=== PATIENT | male | born 1935 | race Caucasian/White ===

== ENCOUNTER 2022-07-26 12:00 | Outpatient (CLI) | payer MEDICARE, BC, SELFPAY ==
--- OUTSIDE RECORDS SUMMARY | 2022-09-02 03:27 | XMS_ITS | Encounter Summary ---
:1935 Author Organization [facility] Address [address] [place] [id number] Care Team Providers Name Role Phone Dalia Tracy MD Primary Care Provider [phone] Reason for Visit Auth/Cert Specialty Diagnoses / Procedures Referred By Contact Refer red To Contact Surgery Diagnoses BLADDER CANCER Sh Periop Services Procedures COMBINED CYSTOSCOPY, TRANSURETHRAL RESECTION (TUR) TUMOR BLADDER [address] [address] Phone: Referral ID Status Reason Start Date Expiration Date Visits Requ ested Visits Authorized [id number] 1 1 Encounter Details Date Type Department Care Team Description 10/12/2018 Hospital Encounter [facility] Bulmaro Dickson M alignant neoplasm Sarai Leos urinary PreOP/Phase II [place] bladder (H) (Primary [address], UROLOGY [place] Dx) [address] [address] [place] [id number] Social History Tobacco Use Types Packs/Day Years Used Date Smoking Tobacco: Former Cigarettes Quit : 09/14/1971 Smokeless Tobacco: Never Alcohol Use Standard Drinks/Week Comments Yes 0 (1 standard drink = 0.6 oz pure alcoho l) rarely Sex Assigned at Date Recorded Not on file documented as of this encounter Last Filed Vital Signs Vital Sign Reading Time Taken Comments Blood Pressure 145/80 10/12/2018 11:01 AM MACHINE LACER Pulse 67 10/12/2018 10:00 AM MACHINE LACER Temperature 36.4 ??C (97.6 ??F) 10/12/2018 10:00 AM MACHINE LACER Respiratory Rate 14 10/12/2018 11:01 AM MACHINE LACER Oxygen Saturation 95% 10/12/2018 11:01 AM MACHINE LACER Inhaled Oxygen Concentration - - Weight 99 kg (218 lb 3.2 oz) 10/12/2018 5:43 AM MACHINE LACER Height 182.9 cm (6') 10/12/2018 5:43 AM MACHINE LACER Body Mass Index 29.59 10/12/2018 5:43 AM MACHINE LACER documented in this encounter Discharge Instructions Discharge InstructionsYahaira Cisneros RN - 10/12/2018 8:44 AM CST Same Day Surgery Discharge Instructions for Sedation and General Anesthesia ?? It's not unusual to feel dizzy, light-headed or faint for up to 24 hours after surgery or while taking pain medication. If you have these symptoms: sit for a few minutes before standing and have someone assist you when you get up to walk or use the bathroom. ?? You should rest and relax for the next 24 hours. We recommend you make arrangements to have an adult stay with you for at least 24 hours after your discharge. Avoid hazardous and strenuous activity. ?? DO NOT DRIVE any vehicle or operate mechanical equipment for 24 hours following the end of your surgery. Even though you may feel normal, your reactions may be affected by the medication you have received. ?? Do not drink alcoholic beverages for 24 hours following surgery. ?? Slowly progress to your regular diet as you feel able. It's not unusual to feel nauseated and/or vomit after receiving anesthesia. If you develop these symptoms, drink clear liquids (apple juice, dara josé miguel, broth, 7-up, etc. ) until you feel better. If your nausea and vomiting persists for 24 hours, please notify your surgeon. ?? All narcotic pain medications, along with inactivity and anesthesia, can cause constipation. Drinking plenty of liquids and increasing fiber intake will help. ?? For any questions of a medical nature, call your surgeon. ?? Do not make important decisions for 24 hours. ?? If you had general anesthesia, you may have a sore throat for a couple of days related to the breathing tube used during surgery. You may use Cepacol lozenges to help with this discomfort. If it worsens or if you develop a fever, contact your surgeon. ?? If you feel your pain is not well managed with the pain medications prescribed by your surgeon, please contact your surgeon's office to let them know so they can address your concerns. Discharge Instructions for Transurethral Resection of a Bladder Tumor Diet: ?? Diet as tolerated. ?? Drink at least 6 glasses of liquid a day-at least 3 glasses should be water. Activity: ?? Avoid heavy lifting or strenuous activity ?? Increase activity as directed by your surgeon ?? Short walks and stair climbing are OK ?? Showering is OK Care after surgery: ?? Do not hold urine in your bladder. Always empty your bladder when you have the urge to urinate . ?? Do not strain to have a bowel movement. If you constipated, take an over the counter stool softener until stools become normal or soft. This may take several weeks. ?? Do not drive a car or have intercourse until cleared by your doctor. It is not unusual to pass small clots or to have red-tinged urine. If this occurs, decrease activity, and increase your fluid intake. Generally, the urine will clear of blood within a day or two. Call your physician if you have the following signs or symptoms: ?? Painful urination or unable to urinate. ?? Loss of bladder control or increased frequency of urination. ?? Have chills or temperature greater than 101??F. ?? Excessive blood in your urine DISCHARGE INSTRUCTIONS FOR CATHETER CARE AT HOME . Basic Catheter Care 1. Always wash hands before and after handling your catheter. 2. Use soap and water to wash the area around your catheter. 3. Do this procedure twice a day. 4. Proper cleansing will help keep the area from becoming irritated or infected. Leg Bag This is a small plastic bag that collects urine draining from your catheter and then strapped aroundyour thigh. It will need to be emptied when the bag is 1/2 to 3/4 full. Large Drainage Bag 1. This bag is larger than the leg bag and holds more urine. It is to be used while at home, especially at night. 2. Before you go to bed, change the leg bag to the large drainage bag. 3. Pinch off the catheter with your fingers and swab the connection between the catheter and leg bagwith alcohol sponge. 4. Disconnect the leg bag and connect the large drainage bag to your catheter. 5. When you get into bed, arrange the drainage tubing so that it doesn???t kink. 6. Be sure to keep the bag below the level of your bladder and allow enough slack for turning. Cleaning Your Drainage Bags 1. Wash hands. 2. Using funnel or syringe, fill the bag half full with a solution of 1/2 vinegar and 1/2 water. 3. Shake bag, allowing mixture to cleanse inside of bag. 4. Empty out all vinegar and water mixture from your bag. 5. Hang bag to dry when not in use. 6. Clean your bags anytime you change them. Helpful Hints 1. Always keep drainage bags below bladder level to insure adequate drainage. 2. Drink 4-6 glasses of water daily along with other fluids you normally drink to keep urine free ofinfection and / or clots. 3. If you notice no urine in your bag for 2 to 4 hours or you develop extreme discomfort in bladder area, your catheter maybe plugged. Notify your doctor. 4. If you notice your urine becomes foul smelling and cloudy, notify your doctor. Also notify your doctor if you develop fever or chills. 5. If you notice urine leaking around the outside of the catheter, check to be sure catheter or tubing is not kinked. 6. Don???t use leg bag while in bed. HOW TO REMOVE YOUR CATHETER INSTRUCTIONS 1. Wash your hands. 2. Insert the syringe into balloon port of the catheter. 3. Withdraw all the fluid from the balloon. You may have to re-insert the syringe into the port additional times until no more fluid can be withdrawn. 4. Pull gently on the catheter. If no resistance, slowly withdraw. 5. Dispose of the catheter and the syringe. 6. Wash your hands. 7. Call your doctor if unable to urinate within 6-8 hours, or when uncomfortable. If you have questions or concerns about your procedure, call Dr. Dcikson at [phone] INE LACER documented in this encounter Medications at Time of Discharge Medication Sig Dispensed Refills Start Date End Date amLODIPine (NORVASC) 5 MG Take 10 mg by 0 tablet mouth every evening (Takes 2 x 5mg tablet = 10mg dose) cholecalciferol 1000 units Take 1,000 Units 0 TABS by mouth daily Multiple Vitamins-Minerals Take 1-2 tablets 0 (PRESERVISION AREDS 2 PO) by mouth daily ciprofloxacin (CIPRO) 500 Take 1 tablet (500 6 tablet 0 10/15/2018 MG tabletIndications: mg) by mouth 2 Malignant neoplasm of dome times daily for 3 of urinary bladder (H) days documented as of this encounter Progress Notes Alyssa Harkins - 10/12/2018 5:33 AM CST Admission medication history interview status for the 10/12/2018 admission is complete. See [facility] admission navigator for prior to admission medications Medication history source reliability:Good Medication history interview source(s):Patient Medication history resources (including written lists, pill bottles, clinic record):None Primary pharmacy.[place] Additional medication history information not noted on [employer] SUPER[employer]OR med list :None Time spent in this activity: 45 minutes Prior to Admission medications Medication Sig Last Dose Taking? Auth Provider amLODIPine (NORVASC) 5 MG tablet Take 10 mg by mouth every evening (Takes 2 x 5mg tablet = 10mg dose) 10/11/2018 at 1900 Yes Reported, Patient cholecalciferol 1000 units TABS Take 1,000 Units by mouth daily 10/11/2018 at AM Yes Reported, Patient Multiple Vitamins-Minerals (PRESERVISION AREDS 2 PO) Take 1-2 tablets by mouth daily 10/11/2018 at AMYes Reported, Patient INE LACER documented in this encounter Nursing Notes Yahaira Cisneros RN - 10/12/2018 10:32 AM CST PNDS met, po per I&O sheet. Pt dressed, up in recliner and transported to Phase [facility]. [facility] with and son. INE LACER Cecilia Glynn RN - 10/12/2018 9:11 AM CST Covering for 15 min break. INE LACER documented in this encounter Miscellaneous Notes Op Note - Bulmaro Dickson MD - 10/12/2018 11:03 AM CST Procedure Date: 10/12/2018 PREOPERATIVE DIAGNOSIS: Recurrent superficial bladder tumors. POSTOPERATIVE DIAGNOSIS: Tumors located close to the right ureteral orifice appeared to be superficial. Final pathology pending. PROCEDURE: 1. Cystoscopy, bilateral retrogrades. 2. Right ureteral stent. 3. Bladder biopsies with fulguration. ANESTHESIA: General. SURGEON: Bulmaro Dickson MD SUMMARY OF FINDINGS: Multiple superficial bladder tumors located surrounding the right ureteral orifice, dome and posterior bladder; they do appear to be superficial; final pathology pending. Placementof a 6-Haitian x 26 cm stent secondary to the tumors being very close to the orifice. BRIEF HISTORY AND PHYSICAL: The patient is a very pleasant 82-year-old male with a history of recurrent superficial bladder tumors. He has undergone previous resections in the distant past. His most recent followup demonstrated evidence of superficial tumors located surrounding the right ureteral orifice, dome and posterior bladder. The patient now scheduled for definitive treatment. The procedure was thoroughly explained to the patient including possible complications and realistic expectations, and he has elected to proceed. DESCRIPTION OF PROCEDURE: Proper permits were obtained and signed. The patient was taken to the operating room after general anesthesia. He was prepped and draped in the usual sterile fashion. Preliminary cystoscopy shows evidence of a normal urethra, mildly obstructing prostate and the bladder was entered. There was evidence of superficial bladder tumors located surrounding the right ureteral orifice, posterior bladder and dome measuring approximately 0.5 cm. The patient underwent bilateral retrogrades with an 8 acorn catheter with adequate filling of the left ureter, and collecting system was normal. Right ureter also was completely normal. There was no evidence of any obvious filling defects not ed. A [employer]son wire was placed into the right ureteral orifice and a 6-Haitian x 26 cm stent then was placed over the wire in good position in the kidney and bladder. The patient underwent multiple cup biopsies surrounding the orifice, removing all visual tumor and fulguration carefully around that orifice. Posterior there was a small tumor which also was cup biopsied, and the surrounding area was fulgurated. The dome also had a tumor, which again was removed with good cup biopsies and surrounding area was completely fulgurated. No evidence of bleeding was noted. A 16-Haitian Nathan catheter placed and irrigated clear. He was given 10 mg Lasix and a B and O suppository and taken to the recovery room in stable condition. The patient will require a second procedure to remove his stent in approximately 1 week, which will be done in the office. BULMARO DICKSON MD MT: NTS Name: FERMÍN HEATON Account: [id number] : 1935 Procedure Date: 10/12/2018 Document: [id number] cc: Primary Care Physician INE LACER Brief Op Note - Bulmaro Dickson MD - 10/12/2018 8:21 AM CST preop- recurrent superficial bladder tumors Postop same-tumor close to rt orifice Procedure - cysto,retrogrades, rt stent bladder bx's and fulgaration. 1cm area anest- gen Surgeon -sedrick ebl 5cc. Findings-multiple superficial bladder tumors. Rt stent [id number]. INE LACER documented in this encounter Plan of Treatment Not on filedocumented as of this encounter Procedures Procedure Name Priority Date/Time Associated Comments Diagnosis SURGICAL PATHOLOGY Routine 10/12/2018 7:55 AM Res ults for this EXAM MACHINE LACER procedure are i n the results section. XR SURGERY WYATT Routine 10/12/2018 7:50 AM Result s for this FLUORO LESS THAN 5 MACHINE LACER procedure are in MIN W STILLS the results section. CYSTOSCOPY, WITH 10/12/2018 7:20 AM BLADDER CANCER BLADDER NEOPLASM MACHINE LACER FULGURATION CYSTOSCOPY, WITH 10/12/2018 7:20 AM BLADDER CANCER RETROGRADE PYELOGRAM MACHINE LACER AND URETERAL STENT INSERTION CYSTOSCOPY, WITH 10/12/2018 7:20 AM BLADDER CANCER BLADDER BIOPSY MACHINE LACER LAB RESULT - HIM SCAN 09/24/2018 12:00 AM MACHINE LACER EKG CARDIAC - HIM 09/24/2018 12:00 SCAN AM MACHINE LACER documented in this encounter Results Surgical pathology exam (10/12/2018 7:55 AM MACHINE LACER) Component Value Ref Test Analysis Performed At [facility] gist Range Method Time Signature Copath Report Patient Name: FERMÍN HEATON MR#: [id number] Specimen #: [id number] Collected: 10/12/2018 Received: 10/12/2018 Reported: 10/13/2018 14:46 Ordering Phy(s): BULMARO DICKSON For improved result formatting, select 'View Enhanced Report Format' under Linked Documents section. SPECIMEN(S): A: Bladder tumor B: Bladder dome biopsy FINAL DIAGNOSIS: A: Urinary bladder, tumor, biopsy: 1. Non-invasive low-grade papillary urothelial carcinoma. 2. Muscularis propria is not present. B: Urinary bladder, dome, biopsy: 1. Non-invasive low-grade papillary urothelial carcinoma. 2. Muscularis propria is not present. Electronically signed out by: Elkin Lim M.D. GROSS: A. The specimen is received in formalin, labeled with the pa alexshiloh's name and date of , and designated bladder tumor. It consists of two pink-stein, focally hemorr hagic soft tissue fragments, measuring 0.2 cm and 0.3 cm in greatest dimension. ??Entirely submitted in one ca ssette. B. The specimen is received in formalin, labeled with the pa alexshiloh's name and date of , and designated bladder dome biopsy. It consists of a single 0.6 cm pink-t an, focally hemorrhagic soft tissue fragment. Submitted in toto in one cassette. (Dictated by: ALEISHA Freire([facility]) 10/12/2018 12:10 PM) MICROSCOPIC: Noted is the reported history (per available electronic [facility] bong record) including urinary bladder involved by noninvasive low grade papillary urothelial carcinoma dating back to at least 2005. A: Sections demonstrate fragments of cauterized urothelial m ucosa. ??There are papillary fibrovascular cores lined by hyperplastic urothelial cells with cytologic atypia , interpreted as low-grade papillary urothelial carcinoma. ??There are no invasive architectural features. ? ?Muscularis propria is not identified. B: Sections demonstrate fragments of cauterized urothelial m ucosa. ??There are papillary fibrovascular cores lined by hyperplastic urothelial cells with cytologic atypia , interpreted as low-grade papillary urothelial carcinoma. ??There are no invasive architectural features. ? ?Muscularis propria is not identified. This case was reviewed within the department by multiple oth er members (DB, LV) who concur with the diagnoses. CPT Codes: A: 66727-YE2 B: 31044-OD2 TESTING LAB LOCATION: [address] ??[id number] COLLECTION SITE: Client: [facility] Location: SHOR (S) Specimen (Source) Anatomical Collection Method Collection Time Re ceived Time Location / / Volume Laterality Tissue specimen URINARY BLADDER 10/12/2018 7:55 AM (specimen) STRUCTURE / MACHINE LACER Unknown Tissue specimen URINARY BLADDER 10/12/2018 8:13 AM (specimen) STRUCTURE / MACHINE LACER Unknown Bulmaro Dickson MD [facility] Organization Address City/State/ZIP Code Phon e Number COPATH XR Surgery WYATT L/T 5 Min Fluoro w Stills (10/12/2018 7:50 AM MACHINE LACER) Anatomical Region Laterality Modality Abdomen/Pelvis Radio Fluoroscopy Specimen (Source) Anatomical Location Collection Method / Collectio n Time Received Time / Laterality Volume Impressions 10/12/2018 10:22 AM MACHINE LACER IMPRESSION: A total of three spot fluoroscopic images obtained during retrograde bilateral myelograms. No hydr onephrosis on the left. Perhaps minimal hydronephrosis on the ri ght with ureteral stent in place on the right at completion. Total fluoroscopic time is 0.2 minutes. ALEJANDRINA KING MD Narrative 10/12/2018 10:22 AM MACHINE LACER SURGERY C-ARM FLUOROSCOPY LESS THAN FIVE MINUTES WITH STILLS 10/12/2018 7:50 AM HISTORY: Bilateral retrogrades. COMPARISON: None. Procedure Note Alejandrina King MD - 10/12/2018 SURGERY C-ARM FLUOROSCOPY LESS THAN FIVE MINUTES WITH STILLS 10/12/2018 7:50 AM HISTORY: Bilateral retrogrades. COMPARISON: None. IMPRESSION: A total of three spot fluoro scopic images obtained during retrograde bilateral myelograms. No hydr onephrosis on the left. Perhaps minimal hydronephrosis on the ri ght with ureteral stent in place on the right at completion. Total fluoroscopic time is 0.2 minutes. ALEJANDRINA KING MD Bulmaro Dickson MD IMG DIAGNOSTIC IMAGING ORDER [facility] LAB RESULT - HIM SCAN (09/24/2018 12:00 AM MACHINE LACER) Specimen (Source) Anatomical Location Collection Method / Collectio n Time Received Time / Laterality Volume 09/24/2018 Narrative This result has an attachment that is no t available. Provider Outside NON-BEAKER LAB TESTING EKG CARDIAC - HIM SCAN (09/24/2018 12:00 AM MACHINE LACER) Specimen (Source) Anatomical Location Collection Method / Collectio n Time Received Time / Laterality Volume 09/24/2018 Narrative This result has an attachment that is no t available. 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 Scheduled Medication Order 10/10/2018 10/11/2018 10/12/2018 ceFAZolin (ANCEF) intermittent infusion 2 g in 100 mL dextrose PRE-MIX (COMPLETED) 0732 (Given - Provid er: Lilibeth Howard APRN CRNA) 2 g, Intravenous, PRE-OP/PRE-PROCEDURE, Starting Fri10/12/18 at 0541, For 1 dose, Give first dose within 1 hour PRIOR to incision. If patient weight is greater than or equal to 120 kg increase dose to 3 g., Indications: Perioperative Pharmacoprophylaxis, Pre-procedu re tolterodine ER (DETROL LA) 24 hr capsule 4 mg (COMPLETED) 09 (Given - Provider: Cecilia Glynn, RN) 4 mg, Oral, ONCE, On Fri10/12/18 at 0845 , For 1 dose, One time prior to discharge., Post-procedure PRN Medication Order 10/10/2018 10/11/2018 10/12/2018 iopamidol (ISOVUE-300) IV solution 61% (CANCELED) 0751 (Given - Provider: Bulmaro Dickson MD) PRN, Starting Fri10/12/18 at 0751, Intra-procedure sterile water irrigation (bag) (CANCELED) 0741 (Given - Provider: Bulmaro Dickson MD)0822 (Given - Provider: Bulmaro Dickson MD) PRN, Intra-procedure, Starting Fri10/12/18 at 0741, Until Fri at 1032 documented in this encounter Care Teams Rn Radiology Relationship Specialty Start Date End Date Dalia Tracy MD PCP - General Family Practice 10/12/[address] [address] documented as of this encounter
--- OUTSIDE RECORDS SUMMARY | 2022-09-02 03:27 | XMS_ITS | Encounter Summary ---
:1935 Author Organization [facility] Address [address] [place] [address]. [place] [address] Care Team Providers Name Role Phone Alexis Sanchez MD Primary Care Provider Encounter Details Date Type Department Care Team Description 09/14/2012 Anesthesia Event [facility] Dayana Menard PeriOP [facility] v[facility] [place] [address] [facility] [address] [phone] [phone] [id number] (Wo rk) Anesthesia Record Procedure Summary Procedure Name Responsible Anesthesia Start Anesthesia Stop Anesthesiologist Time Time CYSTOSCOPY, BILATERAL 09/14/12 0721 09/14/12 0 825 RETROGRADES, TRANSURETHRAL RESECTION BLADDER TUMOR (Urethra) Events Date Time Event Comment 09/14/2012 0718 0721 An Start 0825 An Stop Name Total gentamicin (GARAMYCIN) IVPB 80 mg 80 mg Agents No agents on file. Blood No blood administrations on file. Lines, Drains, and Airways Type Details Placement Removal Peripheral IV 09/14/12; 20 G; Right; 09/14/12 0000 by 09/14/12 1052 by Hand Idania Be RN Scholes, S andra L RN Retired Non-Surgical 09/14/12; 0726; 5; 09/14/12 0726 by 2 0837 by Airway laryngeal mask airway; Ansley Suresh Sandra L, center of mouth; KEEGAN Burr CRNA, RN Equal, clear and bilateral; HSchraan,VENTILATING EQUIPMENT INSTALLER; End of therapy Urethral Catheter 09/14/12; 0811 09/14/12 0811 by Rigo, 10/12/18 0857 by (unknown); /GI/STREET COMMISSIONER LIZ Cazares Jodie, RN Pelvic Procedure; 16 fr documented in this encounter Social History Tobacco Use Types Packs/Day Years Used Date Smoking Tobacco: Former Smokeless Tobacco: Former Qu it: 09/14/1971 Alcohol Use Standard Drinks/Week Comments Yes 0 (1 standard drink = 0.6 oz pure alcoho l) Sex Assigned at Date Recorded Not on file documented as of this encounter OR Notes Anesthesia Postprocedure Evaluation - Dayana Menard - 09/14/2012 10:15 AM CST Anesthesia Post-Evaluation Note Patient: Fermín Heaton Patient location: PACU Procedure(s) Performed: Procedure(s) with comments: COMBINED CYSTOSCOPY, TRANSURETHRAL RESECTION (TUR) TUMOR BLADDER - CYSTOSCOPY, BILATERAL RETROGRADES, TRANSURETHRAL RESECTION BLADDER TUMOR COMBINED CYSTOSCOPY, RETROGRADES Anesthesia type: General Patient Condition Respiratory Function (RR / SpO2 / Airway Patency): Satisfactory Cardiac Function (HR / Rhythm / BP): Satisfactory Mental Status: Satisfactory Temperature: Satisfactory Pain Control: Satisfactory PONV: None Beta-Juancho Therapy: None indicated Hydration Status: Satisfactory Last Vitals: Filed Vitals: 09/14/12 0935 09/14/12 0945 09/14/12 1000 BP: 129/73 109/70 105/58 Temp: Resp: 16 16 16 SpO2: 96% 95% 95% ATION AND TRAINING MANAGER Anesthesia Preprocedure Evaluation - Dayana Menard - 09/14/2012 7:16 AM CST Procedure: Procedure(s): COMBINED CYSTOSCOPY, TRANSURETHRAL RESECTION (TUR) TUMOR BLADDER COMBINED CYSTOSCOPY, RETROGRADES Preop diagnosis: bladder tumor Allergies Allergen Reactions ??? Vicodin (Hydrocodone-Acetaminophen) vomiting Past Medical History Diagnosis Date ??? Snoring Past Surgical History Procedure Date ??? Appendectomy ??? Genitourinary surgery ??? Hernia repair ??? Ent surgery T+A Prior to Admission medications Not on File Current Facility-Administered Medications Ordered in [facility] Medication Dose Route Frequency Last Rate Last Dose ??? gentamicin (GARAMYCIN) IVPB 80 mg 80 mg Intravenous Pre-Op/Pre-procedure x 1 dose No current [facility]-ordered outpatient prescriptions on file. Wt Readings from Last 1 Encounters: 09/14/12 93.441 kg (206 lb) Temp Readings from Last 1 Encounters: 09/14/12 97.7 ??F (36.5 ??C) BP Readings from Last 6 Encounters: 09/14/12 127/73 09/14/12 127/73 Pulse Readings from Last 4 Encounters: No data found for Pulse Resp Readings from Last 1 Encounters: 09/14/12 24 SpO2 Readings from Last 1 Encounters: 09/14/12 97% Recent Labs Lab Test 11/05/05 1008 NA -- POTASSIUM -- CHLORIDE -- CO2 -- ANIONGAP -- GLC 106 BUN 20 CR 1.10 EMANI -- Anesthesia Evaluation . Pt has had prior anesthetic. No history of anesthetic complications ROS/MED HX Pulmonary: (-) COPD, sleep apnea and ABDI Risk Factors Neurologic: (-) CVA Cardiovascular: (-) hypertension, CAD and arrhythmias METS/Exercise Tolerance: Hematologic: Musculoskeletal: GI/Hepatic: (-) GERD and liver disease Renal: Comment: Urinary retention, bladder tumors (-) renal disease Endo: (-) Type I DM and Type II DM Psychiatric: Infectious Disease: Other: Physical Exam Airway Mallampati: III TM distance: >3 FB Neck ROM: full Dental (+) partials Cardiovascular Rhythm and rate: regular and normal Pulmonary breath sounds clear to auscultation Anesthesia Plan ASA Score 2 . Plan for General and LMA with Intravenous induction. Maintenance will be TIVA. Routine analgesia and antiemetics to be used for post-operative care. Anesthetic plan, risks, benefits and alternatives discussed with: patient or commissary representative. History & Physical Review History and physical reviewed; no interval change. . ATION AND TRAINING MANAGER documented in this encounter Miscellaneous Notes Anesthesia Care Transfer Note - Ansley Suresh APRN CRNA - 09/14/2012 8:25 AM CST Anesthesia Care Transfer Note Patient: Fermín Heaton Transferred to: PACU Patient vital signs: stable Airway: LMA To PACU on 10L 02 per LMA. Spontaneous respirations with Vt >400. Sats 100%. Report given to RN. ATION AND TRAINING MANAGER documented in this encounter Plan of Treatment Not on filedocumented as of this encounter Visit Diagnoses Not on filedocumented in this encounter Administered Medications Inactive Administered Medications - up to 3 most recent administrations Medication Order MAR Action Action Date Dose Rate Site gentamicin (GARAMYCIN) IVPB 80 mg Given 09/14/2012 7:35 AM EDUCATION AND TRAINING MANAGER 80 mg Routine, 80 mg, Intravenous, PRE-OP/PRE-PROCEDURE, Starting on 09/14/12 at 0557, For 1 dose, Pre-procedure documented in this encounter Care Teams Licensed Guide Relationship Specialty Start Date End Date Alexis Sanchez MD PCP - General Family Practice 09/04/12 10/29/[address] [phone] documented as of this encounter
--- OUTSIDE RECORDS SUMMARY | 2022-09-02 03:27 | XMS_ITS | Encounter Summary ---
:1935 Author Organization [facility] Address [address] [place] [id number] Care Team Providers Name Role Phone Dalia Tracy MD Primary Care Provider [phone] Encounter Details Date Type Department Care Team Description 10/12/2018 Travel Social History Tobacco Use Types Packs/Day Years Used Date Smoking Tobacco: Former Cigarettes Quit : 09/14/1971 Smokeless Tobacco: Never Alcohol Use Standard Drinks/Week Comments Yes 0 (1 standard drink = 0.6 oz pure alcoho l) rarely Sex Assigned at Date Recorded Not on file documented as of this encounter Plan of Treatment Not on filedocumented as of this encounter Visit Diagnoses Not on filedocumented in this encounter Care Teams Automatic Spinning Lathe Operator Relationship Specialty Start Date End Date Dalia Tracy MD PCP - General Family Practice 10/12/[address] [address] documented as of this encounter
--- OUTSIDE RECORDS SUMMARY | 2022-09-02 03:27 | XMS_ITS | Encounter Summary ---
:1935 Author Organization [place] Address [facility] [place] [address] Care Team Providers Name Role Phone Alexis Sanchez MD Primary Care Provider Reason for Visit Auth/Cert - Closed Specialty Diagnoses / Procedures Referred By Contact Refer red To Contact Surgery Diagnoses bladder tumor Sh Periop Services Procedures COMBINED CYSTOSCOPY, TRANSURETHRAL RESECTION (TUR) TUMOR BLADDER COMBINED CYSTOSCOPY, RETROGRADES [address] [address] Phone: Referral ID Status Reason Start Date Expiration Date Visits Requ ested Visits Authorized [id number] Closed 1 1 Encounter Details Date Type Department Care Team Description 09/14/2012 Surgery [facility] Bulmaro Dickson MD CYSTOSCOPY, BILATERAL [place] [facility], Services [place] TRANSURETHRAL RESECTION [address] BLADDER TUMOR [address] [place] [address] [place] [address] [phone] Surgery Details Date/Time Status Location OR Service Patient Case Class Case Tr auma Class Type Case? 09/14/12 7:20 Posted OR OR [facility] Same Day AM Surgery Panel 1 Procedure LRB Anes Op Region Wound Class Commen ts CYSTOSCOPY, N/A General Urethra II-Clean CYSTOSCOPY, BILATERAL Contaminated BILATERAL RETROGRADES, RETROGRADES, TRANSURETHRAL TRANSURETHR AL RESECTION BLADDER RESECTI ON BLADDER TUMOR TUMOR CYSTOSCOPY, WITH Bilateral General Urethra II-Clean RETROGRADE PYELOGRAM Contaminated Surgeon Surgeon Role Service Panel Bulmaro Dickson MD Primary Urology 1 documented in this encounter Social History Tobacco Use Types Packs/Day Years Used Date Smoking Tobacco: Former Smokeless Tobacco: Former Qu it: 09/14/1971 Alcohol Use Standard Drinks/Week Comments Yes 0 (1 standard drink = 0.6 oz pure alcoho l) Sex Assigned at Date Recorded Not on file documented as of this encounter Last Filed Vital Signs Vital Sign Reading Time Taken Comments Blood Pressure 133/74 09/14/2012 8:30 AM GROUNDS/MAINTENANCE SPECIALIST Pulse - - Temperature 36.5 ??C (97.7 ??F) 09/14/2012 6:05 AM GROUNDS/MAINTENANCE SPECIALIST Respiratory Rate 12 09/14/2012 8:30 AM GROUNDS/MAINTENANCE SPECIALIST Oxygen Saturation 100% 09/14/2012 8:30 AM GROUNDS/MAINTENANCE SPECIALIST Inhaled Oxygen Concentration - - Weight 93.4 kg (206 lb) 09/14/2012 6:05 AM GROUNDS/MAINTENANCE SPECIALIST Height 185.4 cm (6' 1) 09/14/2012 6:05 AM GROUNDS/MAINTENANCE SPECIALIST Body Mass Index 27.18 09/14/2012 6:05 AM GROUNDS/MAINTENANCE SPECIALIST documented in this encounter Discharge Instructions Discharge InstructionsLiana Abreu RN - 09/14/2012 11:30 AM CST Same Day Surgery Discharge Instructions For Sedation and General Anesthesia 1. It is not unusual to feel light-headed or faint, up to 24 hours after surgery or while taking pain medication. If you have these symptoms; sit for a few minutes before standing and have someone assist you when you get up to walk or use bathroom. 2. You should rest and relax for the next 24 hours and must make arrangements to have someone stay with you for at least 24 hours after your discharge. Avoid hazardous and strenuous activities. 3. DO NOT DRIVE any vehicle or operate mechanical equipment for 24 hours following the end of your surgery. Even though you feel normal, your reactions may be affected by the medication you have received. 4. Do not drink alcoholic beverages for 24 hours following your surgery. 5. Drink clear liquids (apple juice, dara josé miguel, broth, 7-up etc.) Progresses to your regular diet as you feel able. 6. Any questions of a medical nature, call your physician. 7. Do not make important decisions for 24 hours. Cystoscopy Discharge Instructions Diet: Return to the diet that you were on before the procedure, unless you are given specific diet instructions. It is important to drink 6-8 glasses of fluids per day at home - at least 3-4 glasses should be water. Activity: Walk short distances and increase as your strength allows. You may climb stairs. Do not do strenuous exercise or heavy lifting until approved by surgeon. Do not drive while taking narcotic pain medications. Bathing: You may take a shower. Call your physician at if these signs/symptoms are present: Pain that is not relieved by a short rest or ordered pain medications. Temperature at or above 101.0??F or chills. Inability or difficulty urinating. Excessive blood in urine. Any questions or concerns. Your follow up appointment is Nurse signature Date/Time Patient signature DISCHARGE INSTRUCTIONS FOR CATHETER CARE AT HOME You will be going home soon, but your catheter will remain in place for the next few days or weeks.Your catheter drains urine continuously from your bladder, so you will not need to use the toilet, bed dexter or urinal. Your catheter is held inside your bladder by a small balloon filled with water. When it is time foryour catheter to be removed, your doctor will release the water from the balloon. This will allow the catheter to slide out easily. Before your discharge from the hospital, your nurse will review the following instructions about caring for your catheter and drainage bag. By following the instructions carefully, you will avoid problems such as infection, odor, etc. Basic Catheter Care 1. Always wash hands [...] your catheter and then strapped aroundyour thigh. 1. The leg bag can be worn under clothing. It allows you to move around more easily. 2. Empty it every 3 to 4 hours or when it is full. 3. Wash your hands before you empty the bag. 4. Release the bottom stopper to drain out all urine. 5. After emptying bag, swab the port with alcohol sponge. 6. Replace the stopper. Night Drainage Bag This bag is larger than the leg bag and holds more urine. It is to be used while at home, especiallyat night. Since it is larger, you do not need to work about getting up at night to empty it. 1. Before you go to bed, change the leg bag to the night drainage bag. 2. Begin by emptying your bag. 3. Pinch off the catheter with your fingers and swab the connection between the catheter and leg bagwith alcohol sponge. 4. Disconnect the leg bag and connect the night drainage bag to your catheter. 5. When you get into bed, arrange the drainage tubing so that it doesn???t kink. 6. Be sure to keep the bag below the level of your bladder and allow enough slack for turning. Cleaning Your Drainage Bags Supplies: 1. Solution of 1 cup white vinegar and 1 cup lukewarm water. 2. Funnel or catheter tip syringe. Procedure: 1. Wash hands. 2. Rinse bag with lukewarm water. 3. Using funnel or syringe, fill the bag half full with vinegar and water mixture. 4. Shake bag, allowing mixture to cleanse inside of bag. 5. Empty out all vinegar and water mixture from your bag. 6. Outside of bag can be rinsed with warm water and mild soap. 7. Hang bag to dry when not in use. 8. Cleanse your bags every day. Helpful Hints 1. Always keep drainage bags below bladder level to insure adequate drainage. 2. Drink 4-6 glasses of water daily along with other fluids you normally drink to keep urine free ofinfection and / or clots. 3. If you notice no urine in your bag for 2 to 4 hours or if extreme discomfort in bladder area, catheter maybe plugged. Notify your doctor. 4. If you notice your urine becomes foul smelling and cloudy, notify your doctor. Also notify your doctor if you develop fever or chills. 5. If you notice urine leaking around the outside of the catheter, check to be sure catheter or tubing is not kinked. 6. Don???t use leg bag while in bed. NDS/MAINTENANCE SPECIALIST documented in this encounter Medications at Time of Discharge Medication Sig Dispensed Refills Start Date End Date ciprofloxacin (CIPRO) 500 Take 1 tablet by 6 tablet 0 08/2910/09/2018 MG tabletIndications: mouth 2 times Bladder cancer (H) daily. documented as of this encounter Progress Notes Bulmaro Dickson MD - 09/18/2012 12:49 PM CST NDS/MAINTENANCE SPECIALIST documented in this encounter H&P Notes Bulmaro Dickson MD - 09/17/2012 4:58 PM CST NDS/MAINTENANCE SPECIALIST documented in this encounter Nursing Notes Idania Be RN - 09/14/2012 10:53 AM CST BACK FOR CATHETER TEACHING. NDS/MAINTENANCE SPECIALIST documented in this encounter OR Notes OR Anesthesia - Bulmaro Dickson MD - 09/18/2012 12:16 PM CST NDS/MAINTENANCE SPECIALIST documented in this encounter Miscellaneous Notes Op Note - Bulmaro Dickson MD - 09/14/2012 8:28 AM CST PREOPERATIVE DIAGNOSIS: Recurrent superficial bladder cancer. POSTOPERATIVE DIAGNOSIS: Recurrent superficial bladder cancer. PROCEDURES: 1. Cystoscopy, bilateral retrogrades. 2. Resection and fulguration of bladder tumors. ANESTHESIA: General. SUMMARY OF FINDINGS: Multiple low papillary tumors located to the right trigone surrounding the right orifice, superficial tumor dome. Normal bilateral retrogrades. BRIEF HISTORY AND PHYSICAL: Fermín Gutierrez is a very pleasant 76-year-old male with a history of recurrent superficial bladder cancer. He has had previous resection in the past. He was recently seen and was found to have superficial recurrences surrounding the right orifice and dome. He is now scheduled for definitive treatment. The procedure was thoroughly explained to the patient including possible complications and realistic expectations. DESCRIPTION OF PROCEDURE: Proper permits were obtained and signed and taken to the operating suite. After adequate general anesthesia, he was prepped in a sterile fashion. A 22 [place]er was visually passed. Urethra was normal. Prostate was mildly obstructing. Bladder demonstrated evidence of superficialpapillary tumor surrounding the right orifice which was initially difficult to visualize. Also notedwas a low papillary tumor in the dome of the bladder. The rest of the bladder was completely negative. There were some previous scars noted also. The patient underwent bilateral retrogrades with an 8 acorn catheter with adequate filling of the ureters and collecting systems. There was no evidence for obstruction or any filling defects. The 26 [place]er continuous flow resectoscope then was visually passed into the bladder. He underwent resection of the tumor surrounding the right dome and fulguration of all the abnormal surrounding mucosa and surrounding the right orifice. The tumor on the dome also was biopsied and fulgurated. No evidence of bleeding was noted. A Nathan catheter irrigated clear. A B&O suppository was placed in thebladder for postop analgesia including Xylocaine jelly. Estimated blood loss less than 5 mL. COMPLICATIONS: The patient to the recovery room in stable condition. BULMARO DICKSON MD MT: [id number] Name: FERMÍN GUTIERREZ MRN: [id number] Account: [id number] : 1935 Procedure Date: 09/14/2012 Document: [id number] NDS/MAINTENANCE SPECIALIST documented in this encounter Plan of Treatment Not on filedocumented as of this encounter Procedures Procedure Name Priority Date/Time Associated Comments Diagnosis SURGICAL PATHOLOGY Routine 09/14/2012 8:01 AM Res ults for this EXAM GROUNDS/MAINTENANCE SPECIALIST procedure are i n the results section. XR PYELOGRAM RETRO Routine 09/14/2012 7:55 AM Res ults for this SURGERY G/E 1 FILMS GROUNDS/MAINTENANCE SPECIALIST procedur e are in the results section. CYSTOSCOPY, WITH 09/14/2012 7:21 AM bladder tumor RETROGRADE PYELOGRAM GROUNDS/MAINTENANCE SPECIALIST CYSTOSCOPY, WITH 09/14/2012 7:21 AM bladder tumor TRANSURETHRAL GROUNDS/MAINTENANCE SPECIALIST RESECTION BLADDER TUMOR documented in this encounter Results Surgical pathology exam (09/14/2012 8:01 AM GROUNDS/MAINTENANCE SPECIALIST) Component Value Ref Test Analysis Performed At [facility] Range Method Time Signature Copath Patient Name: FERMÍN GUTIERREZ Report MR#: [id number] Specimen #: [id number] Collected: 09/14/2012 Received: 09/14/2012 Reported: 09/15/2012 13:38 Ordering Phy(s): BULMARO DICKSON SPECIMEN(S): Bladder tumor FINAL DIAGNOSIS: Bladder, not otherwise specified, biopsy - 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 Electronically signed out by: Genaro Castaneda M.D. CLINICAL HISTORY: Bladder tumor. GROSS: The specimen is labeled bladder tumor. ??The specimen cons ists of two pink-stein tissue fragments ranging from 0.3 cm up to 0.4 cm. ??The specimens are entirely submitted. ??SI TRS/tw MICROSCOPIC: Sections of bladder show hyperplasia of the transitional duong l epithelium accompanied by chronic inflammatory change. The majority of epithelial cells have a reactive appearance. ??Focally, however, the pr oliferation has a vague papillary configuration, and the possibility of a low grade transitional carcinoma cannot be excluded. There is no evide nce of invasive malignancy. Intradepartmental consultation has been obtained. BCT/el 09/15/2012 TESTING LAB LOCATION: [address] ??[id number] COLLECTION SITE: Client: [facility] Location: [facility] (S) Specimen Anatomical Collection Method Collection Time Receive d Time (Source) Location / / Volume Laterality 09/14/2012 8:01 AM 2 9:10 GROUNDS/MAINTENANCE SPECIALIST AM GROUNDS/MAINTENANCE SPECIALIST Bulmaro Dickson MD [facility] Performing Organization Address City/State/ZIP Code Phon e Number COPATH X-ray Surgery retro pylogram G/E 1 films (09/14/2012 7:55 AM GROUNDS/MAINTENANCE SPECIALIST) Anatomical Region Laterality Modality Abdomen/Pelvis Computed Radiography Specimen (Source) Anatomical Collection Method Collection Time Re ceived Time Location / / Volume Laterality 09/14/2012 7:55 AM GROUNDS/MAINTENANCE SPECIALIST Narrative 09/14/2012 4:36 PM GROUNDS/MAINTENANCE SPECIALIST SURGERY ??RETROGRADE PYELOGRAM GREATER T TORREZ ONE FILM ??09/14/2012 7:55 AM HISTORY: ??Bilateral retrogrades TURBT. COMPARISON: 11/05/05 FINDINGS: Bilateral retrograde pyelogram s demonstrate no evidence of obstruction, no filling defects and no s trictures. Fluoroscopy time: 6 seconds. DERRICK GOLDBERG MD Procedure Note Derrick Goldberg MD - 09/14/2012Format ting of this note might be different from the original. SURGERY RETROGRADE PYELOGRAM GREATER YOANA N ONE FILM 09/14/2012 7:55 AM HISTORY: Bilateral retrogrades TURBT. COMPARISON: 11/05/05 FINDINGS: Bilateral retrograde pyelogram s demonstrate no evidence of obstruction, no filling defects and no s trictures. Fluoroscopy time: 6 seconds. DERRICK GOLDBERG MD Bulmaro Dickson MD IMG DIAGNOSTIC IMAGING ORDER KAZ documented in this encounter Visit Diagnoses Not on filedocumented in this encounter Administered Medications Inactive Administered Medications - up to 3 most recent administrations Medication Order MAR Action Action Date Dose Rate Site fentaNYL (SUBLIMAZE) injection Given 09/14/2012 9:07 AM GROUNDS/MAINTENANCE SPECIALIST 25 m cg 25-50 mcg 25-50 mcg, Intravenous, EVERY 2 MIN PRN, other, acute pain while in PACU., Starting on Fri09/14/12 at 0835, MAX cumulative dose = 250 mcg. Use Fentanyl initially, as a short acting agent for acute pain control. If insufficient, or a longer acting agent is needed, begin Morphine or Hydromorphone if ordered., PACU Given 09/14/2012 8:46 AM GROUNDS/MAINTENANCE SPECIALIST 25 mcg iopamidol (ISOVUE-300) IV solution 61% Given 09/14/2012 7:50 AM GROUNDS/MAINTENANCE SPECIALIST 7 mLs PRN, Starting on Fri09/14/12 at 0750, Supplied and administered by Radiology., Intra-procedure lactated ringers infusion New Bag 09/14/2012 10:25 AM GROUNDS/MAINTENANCE SPECIALIST 1,000 mLs 100 mL/hr at 100 mL/hr, Intravenous, CONTINUOUS, Continue until IV catheter is weaned, PACU/Phase II, Starting on Fri09/14/12 at 0845, Until Fri09/14/12 at 1052 lidocaine 2 % (Uro-Jet) jelly Given 09/14/2012 8:08 AM GROUNDS/MAINTENANCE SPECIALIST 10 mLs PRN, Starting on Fri09/14/12 at 0808, Intra-procedure opium-belladonna (B&O SUPPRETTES) 30-16.2 MG Given 2 8:10 AM GROUNDS/MAINTENANCE SPECIALIST 30 mg suppository PRN, Starting on Fri09/14/12 at 0810, moderate pain (4-6), Intra-procedure sterile water (bottle) irrigation Given 09/14/2012 8:00 AM GROUNDS/MAINTENANCE SPECIALIST 1,000 mLs PRN, Intra-procedure, Starting on Fri09/14/12 at 0800, Until Fri09/14/12 at 1052 sterile water irrigation (bag) Given 09/14/2012 8:00 AM GROUNDS/MAINTENANCE SPECIALIST 6,000 mLs PRN, Intra-procedure, Starting on Fri09/14/12 at 0800, Until Fri09/14/12 at 1052 documented in this encounter Active and Recently Administered Medications Times are shown in GROUNDS/MAINTENANCE SPECIALIST. Scheduled Medication Order 09/12/2012 09/13/2012 09/14/2012 gentamicin (GARAMYCIN) IVPB 80 mg (COMPLETED) 0735 (Given - Provider: Ansley Suresh, INDUSTRIAL TWISTING MACHINE OPERATOR CHARGE HAND) 80 mg, Intravenous, for 30 Minutes, PRE- OP/PRE-PROCEDURE, For 1 dose, Pre-procedure Continuous Medication Order 09/12/2012 09/13/2012 09/14/2012 lactated ringers infusion (CANCELED) 1025 (New Bag - Provider: Aliyah Choudhary, LIZ) at 100 mL/hr, Intravenous, CONTINUOUS, C ontinue until IV catheter is weaned, PACU/Phase II PRN Medication Order 09/12/2012 09/13/2012 09/14/2012 fentaNYL (SUBLIMAZE) injection 25-50 mcg (CANCELED) 0846 (Given - Provider: Idania Be, LIZ)0907 (Given - Provider: Idania Be RN) 25-50 mcg, Intravenous, EVERY 2 MIN PRN, Starting Fri09/14/12 at 0835, other, acute pain while in PACU., MAX cumulative dose = 250 mcg. Use Fentanyl initially, as a short acting agent for acute pain co ntrol. If insufficient, or a longer acti ng agent is needed, begin Morphine or Hydromorphone if ordered., PACU iopamidol (ISOVUE-300) IV solution 61% (CANCELED) 0750 (Given - Provider: Bulmaro Dickson MD) PRN, Starting Fri09/14/12 at 0750, Supp lied and administered by Radiology., Intra-procedure lidocaine 2 % (Uro-Jet) jelly (CANCELED) 0808 (Given - Provider: Bulmaro Dickson MD) PRN, Starting Fri09/14/12 at 0808, Intra-procedure opium-belladonna (B&O SUPPRETTES) 30-16.2 MG suppository (CANCEL ED) 0810 (Given - Provider: Bulmaro Dickson MD) PRN, Starting Fri09/14/12 at 0810, moderate pain, Intra-procedu re sterile water (bottle) irrigation (CANCELED) 0800 (Given - Provider: Bulmaro Dickson MD - Comment: PRN) PRN, Intra-procedure sterile water irrigation (bag) (CANCELED) 0800 (Given - Provider: Bulmaro Dickson MD - Comment: PRN) PRN, Intra-procedure documented in this encounter Care Teams Twill Cutter Relationship Specialty Start Date End Date Alexis Sanchez MD PCP - General Family Practice 09/04/12 10/29/[address] [address] documented as of this encounter
--- OUTSIDE RECORDS SUMMARY | 2022-09-02 03:27 | XMS_ITS | Encounter Summary ---
:1935 Author Organization [facility] Address [address] [place], [place] [address]. [place] [address] Care Team Providers Name Role Phone Dalia Tracy MD Primary Care Provider [phone] Reason for Visit Auth/Cert Specialty Diagnoses / Procedures Referred By Contact Refer red To Contact Surgery Diagnoses BLADDER CANCER Sh Periop Services Procedures COMBINED CYSTOSCOPY, TRANSURETHRAL RESECTION (TUR) TUMOR BLADDER [address] [address] Phone: Referral ID Status Reason Start Date Expiration Date Visits Requ ested Visits Authorized [id number] 1 1 Encounter Details Date Type Department Care Team Description 10/12/2018 Anesthesia Event M [facility] Erickson Penaloza MD [facility] [address] [address] [place] [address] [phone] (Wo rk) Anesthesia Record Procedure Summary Procedure Name Responsible Anesthesia Start Anesthesia Stop Time Anesthesiologist Time COMBINED Christina Penaloza MD 10/12/18 0720 10/12/18 08 40 CYSTOSCOPY, BLADDER BIOPSY & FULGURATION, BILATERAL RETROGRADES, RIGHT SSTENT PLACEMENT (Urethra) Events Date Time Event Comment 10/12/2018 0656 0720 An Start 0721 An Start Data 0725 Present 0727 An Data Art 0728 An Induction 0730 An LMA 0738 AN INCISION 0828 Present 0830 LMA Removed 0833 an stop data 0840 An Stop Electronically s igned by Lilibeth Howard on October 12, 2018 8:40 AM Name Total dexamethasone 4mg/mL 4 mg ePHEDrine 5 mg/mL 5 mg fentaNYL (SUBLIMAZE) injection 100 mcg glycopyrrolate 0.2mg/mL 0.2 mg lidocaine 2% 100 mg ondansetron 2mg/mL 4 mg propofol (DIPRIVAN) injection 10 mg/mL vial 150 mg propofol infusion (mcg/kg/min) 73.26 mg ceFAZolin (ANCEF) intermittent infusion 2 g in 100 mL dextrose PRE-MIX 2 g dexmedetomidine (PRECEDEX) 4 mcg/mL bolus 20 mcg furosemide 10 mg/mL 10 mg LR 700 mL Agents Name NO HELIOX O2 N2O Air Exp Sevoflurane Exp Isoflurane Exp Desflurane Exp N2O O2 Delivery Device Ins Sevoflurane Ins Isoflurane Ins Desflurane O2 Auxiliary Blood No blood administrations on file. Lines, Drains, and Airways Type Details Placement Removal Urethral Catheter 10/12/18; 0819; No; 10/12/18 0819 by /GI/COAT ROOM ATTENDANT Pelvic Platon, Rosetta Procedure; 16 fr LIZ Loza Urethral Catheter 09/14/12; 0811 09/14/12 0811 by Rigo, 10/12/18 0857 by (unknown); /GI/COAT ROOM ATTENDANT LIZ Cazares Jodie, RN Pelvic Procedure; 16 fr Peripheral IV 10/12/18; 0724; 20 G; 10/12/18 0724 by 10/12/18 1031 by Left; Hand; Alcohol; Lilibeth Howard Vannel li, Jodie, LIZ Tolerated well [employer]ICK[employer] PICKERSantino HOFFMAN Retired Non-Surgical 10/12/18; 0730; Not 10/12/18 0730 by 0830 by Airway attempted ([place] Lilibeth Howard Palmer, R enea Airway); Intravenous; TRENT Melgoza CRNA JUNIOR BRAND MANAGER Easy; 5; laryngeal mask airway; midline; JUNIOR BRAND MANAGER; Tejinder Howard; Spontaneous ventilation, Adequate tidal volume, Follows commands, Transported with oxygen, Purposeful movement documented in this encounter Social History Tobacco Use Types Packs/Day Years Used Date Smoking Tobacco: Former Cigarettes Quit : 09/14/1971 Smokeless Tobacco: Never Alcohol Use Standard Drinks/Week Comments Yes 0 (1 standard drink = 0.6 oz pure alcoho l) rarely Sex Assigned at Date Recorded Not on file documented as of this encounter OR Notes Anesthesia Postprocedure Evaluation - Christina Penaloza MD - 10/12/2018 12:55 PM CST Patient: Fermín Heaton Procedure(s): COMBINED CYSTOSCOPY, BLADDER BIOPSY & FULGURATION, BILATERAL RETROGRADES, RIGHT SSTENT PLACEMENT COMBINED CYSTOSCOPY, RETROGRADES, RIGHT INSERT STENT URETER(S) Cystoscopy, fulgurate bladder tumor, combined Diagnosis:BLADDER CANCER Diagnosis Additional Information: No value filed. Anesthesia Type: General, LMA Note: Anesthesia Post Evaluation Patient location during evaluation: PACU Patient participation: Able to fully participate in evaluation Level of consciousness: awake and alert Pain management: adequate Airway patency: patent Cardiovascular status: acceptable Respiratory status: acceptable Hydration status: acceptable PONV: none Anesthetic complications: None Last vitals: Vitals: 10/12/18 0945 10/12/18 1000 10/12/18 1101 BP: 128/71 124/63 145/80 Pulse: 69 67 Resp: Temp: 36.4 ??C (97.6 ??F) SpO2: 93% 93% 95% Electronically Signed By: Christina Penaloza MD October 12, 2018 12:55 PM TOR CRANE ENGINEER Anesthesia Preprocedure Evaluation - Christina Penaloza MD - 10/12/2018 6:25 AM CST Anesthesia Pre-Procedure Evaluation Patient: Fermín Heaton : 1935 Preoperative Diagnosis: BLADDER CANCER Procedure(s): COMBINED CYSTOSCOPY, TRANSURETHRAL RESECTION (TUR) TUMOR BLADDER WITH RETROGRAGES COMBINED CYSTOSCOPY, RETROGRADES Past Medical History: Diagnosis Date ??? Bladder cancer (H) ??? BPH (benign prostatic hyperplasia) ??? Macular degeneration ??? Snoring Past Surgical History: Procedure Laterality Date ??? APPENDECTOMY ??? COLONOSCOPY ??? CYSTOSCOPY, RETROGRADES, COMBINED 09/14/2012 Procedure: COMBINED CYSTOSCOPY, RETROGRADES;; Surgeon: Sushil Dickson MD; Location: OR ??? CYSTOSCOPY, TRANSURETHRAL RESECTION (TUR) TUMOR BLADDER, COMBINED 09/14/2012 Procedure: COMBINED CYSTOSCOPY, TRANSURETHRAL RESECTION (TUR) TUMOR BLADDER; CYSTOSCOPY, BILATERAL RETROGRADES, TRANSURETHRAL RESECTION BLADDER TUMOR; Surgeon: Sushil Dickson MD; Location: OR ??? ENT SURGERY T+A ??? EYE SURGERY cataract ??? GENITOURINARY SURGERY ??? HERNIA REPAIR Prior to Admission medications Medication Sig Start Date End Date Taking? Authorizing Provider amLODIPine (NORVASC) 5 MG tablet Take 10 mg by mouth every evening (Takes 2 x 5mg tablet = 10mg dose) Yes Reported, Patient cholecalciferol 1000 units TABS Take 1,000 Units by mouth daily Yes Reported, Patient Multiple Vitamins-Minerals (PRESERVISION AREDS 2 PO) Take 1-2 tablets by mouth daily Yes Reported, Patient RECENT LABS: hgb 14.6, plt 177, cr 1.1, k 4.3 ECG: NSR, possible old inferior infarct. Anesthesia Evaluation . ROS/MED HX ENT/Pulmonary: (+)tobacco use, Past use , . . (-) asthma, COPD and sleep apnea Neurologic: (-) seizures, CVA and migraines Cardiovascular: (-) hypertension, CAD, ROBERTSON, arrhythmias, valvular problems/murmurs, dyslipidemia and stent METS/Exercise Tolerance: >4 METS Hematologic: (-) history of blood clots, anemia and other hematologic disorder Musculoskeletal: (-) arthritis GI/Hepatic: (-) GERD and liver disease Renal/Genitourinary: (+) BPH, (-) renal disease Endo: (-) Type I DM, Type II DM, thyroid disease and obesity Psychiatric: (-) psychiatric history Infectious Disease: (-) Recent Fever Malignancy: (+) Malignancy History of Other Other CA bladder Active status post Other: Physical Exam Normal systems: cardiovascular, pulmonary and dental Airway Mallampati: II TM distance: >3 FB Neck ROM: full Dental Cardiovascular Rhythm and rate: regular and normal Pulmonary breath sounds clear to auscultation Preop Vitals BP Readings from Last 3 Encounters: 10/12/18 162/87 09/14/12 120/72 Pulse Readings from Last 3 Encounters: No data found for Pulse Resp Readings from Last 3 Encounters: 10/12/18 16 09/14/12 16 SpO2 Readings from Last 3 Encounters: 10/12/18 97% 09/14/12 95% Temp Readings from Last 1 Encounters: 10/12/18 35.6 ??C (96 ??F) (Oral) Ht Readings from Last 1 Encounters: 10/12/18 1.829 m (6') Wt Readings from Last 1 Encounters: 10/12/18 99 kg (218 lb 3.2 oz) Estimated body mass index is 29.59 kg/m?? as calculated from the following: Height as of this encounter: 1.829 m (6'). Weight as of this encounter: 99 kg (218 lb 3.2 oz). Anesthesia Plan History & Physical Review ASA Status: 3 . NPO Status: > 8 hours Plan for General and LMA with Propofol induction. Maintenance will be Balanced. PONV prophylaxis: Ondansetron (or other 5HT-3) and Dexamethasone or Solumedrol Postoperative Care Postoperative pain management: Multi-modal analgesia. Consents Anesthetic plan, risks, benefits and alternatives discussed with: Patient.. Christina Penaloza MD TOR CRANE ENGINEER documented in this encounter Miscellaneous Notes Anesthesia Care Transfer Note - Lilibeth Howard APRN CRNA - 10/12/2018 8:40 AM CST Patient: Fermín Heaton Procedure(s): COMBINED CYSTOSCOPY, BLADDER BIOPSY & FULGURATION, BILATERAL RETROGRADES, RIGHT SSTENT PLACEMENT COMBINED CYSTOSCOPY, RETROGRADES, RIGHT INSERT STENT URETER(S) Cystoscopy, fulgurate bladder tumor, combined Diagnosis: BLADDER CANCER Diagnosis Additional Information: No value filed. Anesthesia Type: General, LMA Note: Airway :Face Mask Patient transferred to:PACU Comments: To [facility] PACU: Arouses easily, good airway, 02 face mask, VSS Report to RNHandoff Report: Identifed the Patient, Identified the Reponsible Provider, Reviewed the pertinent medical history, Discussed the surgical course, Reviewed Intra-OP anesthesia mangement and issues during anesthesia, Set expectations for post-procedure period and Allowed opportunity for questions and acknowledgement of understanding Vitals: (Last set prior to Anesthesia Care Transfer) JUNIOR BRAND MANAGER VITALS 10/12/2018 0803 - 10/12/2018 0840 10/12/2018 NIBP: 158/90 Pulse: 73 NIBP Mean: 116 SpO2: 98 % Electronically Signed By: Lilibeth Howard APRN CRNA October 12, 2018 8:40 AM TOR CRANE ENGINEER documented in this encounter Plan of Treatment Not on filedocumented as of this encounter Visit Diagnoses Not on filedocumented in this encounter Administered Medications Inactive Administered Medications - up to 3 most recent administrations Medication Order MAR Action Action Date Dose Rate Site ceFAZolin (ANCEF) intermittent Given 10/12/2018 7:32 AM TRACTOR CRANE ENGINEER 2 g infusion 2 g in 100 mL dextrose PRE-MIX Routine, 2 g, Intravenous, PRE-OP/PRE-PROCEDURE, Starting on Fri10/12/18 at 0541, For 1 dose, Give first dose within 1 hour PRIOR to incision. If patient weight is greater than or equal to 120 kg increase dose to 3 g., Indications: Perioperative Pharmacoprophylaxis, Pre-procedure dexamethasone (DECADRON) injection Given 10/12/2018 7:47 AM TRACTOR CRANE ENGINEER 4 mg PRN, Administer over 1 Minutes, Starting on Fri10/12/18 at 0747, Anesthesia Intra-op dexmedetomidine (PRECEDEX) 4 mcg/mL bolu s Bolus 10/12/2018 8:00 AM TRACTOR CRANE ENGINEER 8 mcg CONTINUOUS PRN, Starting on Fri10/12/18 at 0728, Anesthesia Intra-op New Bag 10/12/2018 7:28 AM TRACTOR CRANE ENGINEER 12 mcg ePHEDrine injection Given 10/12/2018 7:32 AM TRACTOR CRANE ENGINEER 5 mg PRN, Starting on Fri10/12/18 at 0732, Anesthesia Intra-op fentaNYL (PF) (SUBLIMAZE) injection Given 10/12/2018 7:47 AM TRACTOR CRANE ENGINEER 50 mcg PRN, Administer over 3-5 Minutes, Starting on Fri10/12/18 at 0728, Anesthesia Intra-op Given 10/12/2018 7:28 AM TRACTOR CRANE ENGINEER 50 mcg furosemide (LASIX) injection Given 10/12/2018 8:15 AM TRACTOR CRANE ENGINEER 10 mg PRN, Administer over 1-2 Minutes, Starting on Fri10/12/18 at 0815, Anesthesia Intra-op glycopyrrolate (ROBINUL) injection Given 10/12/2018 7:33 AM TRACTOR CRANE ENGINEER 0.2 mg PRN, Administer over 1-2 Minutes, Starting on Fri10/12/18 at 0733, Anesthesia Intra-op lactated ringers infusion New Bag 10/12/2018 7:24 AM TRACTOR CRANE ENGINEER Intravenous, CONTINUOUS PRN, Anesthesia Intra-op, Starting on Fri10/12/18 at 0724, Until Fri10/12/18 at 0840 lidocaine 2% injection (MDV) Given 10/12/2018 7:28 AM TRACTOR CRANE ENGINEER 100 mg PRN, Starting on Fri10/12/18 at 0728, Anesthesia Intra-op ondansetron (ZOFRAN) injection Given 10/12/2018 7:47 AM TRACTOR CRANE ENGINEER 4 mg PRN, Administer over 2-5 Minutes, Starting on Fri10/12/18 at 0747, Anesthesia Intra-op propofol (DIPRIVAN) infusion New Bag 10/12/2018 7:41 AM 20 mcg/kg/min 11.9 mL/hr Intravenous, CONTINUOUS PRN, TRACTOR CRANE ENGINEER Starting on Fri10/12/18 at 0741, Anesthesia Intra-op propofol (DIPRIVAN) injection 10 mg/mL v ial Given 10/12/2018 7:28 AM TRACTOR CRANE ENGINEER 150 mg PRN, Starting on Fri10/12/18 at 0728, Anesthesia Intra-op documented in this encounter Care Teams Precision Agronomist Relationship Specialty Start Date End Date Dalia Tracy MD PCP - General Family Practice 10/12/[address] [address] documented as of this encounter
--- OUTSIDE RECORDS SUMMARY | 2022-09-02 03:27 | XMS_ITS | Clinical Summary ---
:1935 Author Organization [facility] Address [address] [place] [address] Care Team Providers Name Role Phone Dalia Tracy MD Primary Care Provider [phone] Allergies Active Allergy Reactions Severity Noted Date Comments Hydrocodone-Acetaminophen 09/14/2012 vo miting Medications Medication Sig Dispensed Refills Start Date End Date Status Multiple Take 1-2 tablets 0 Act jo ann Vitamins-Minerals by mouth daily (PRESERVISION AREDS 2 PO) cholecalciferol 1000 Take 1,000 Units 0 Active units TABS by mouth daily amLODIPine (NORVASC) 5 Take 10 mg by 0 Active MG tablet mouth every evening (Takes 2 x 5mg tablet = 10mg dose) Social History Tobacco Use Types Packs/Day Years Used Date Smoking Tobacco: Former Cigarettes Quit : 09/14/1971 Smokeless Tobacco: Never Alcohol Use Standard Drinks/Week Comments Yes 0 (1 standard drink = 0.6 oz pure alcoho l) rarely Sex Assigned at Date Recorded Not on file Last Filed Vital Signs Vital Sign Reading Time Taken Comments Blood Pressure 145/80 10/12/2018 11:01 AM GUARD LIEUTENANT Pulse 67 10/12/2018 10:00 AM GUARD LIEUTENANT Temperature 36.4 ??C (97.6 ??F) 10/12/2018 10:00 AM GUARD LIEUTENANT Respiratory Rate 14 10/12/2018 11:01 AM GUARD LIEUTENANT Oxygen Saturation 95% 10/12/2018 11:01 AM GUARD LIEUTENANT Inhaled Oxygen Concentration - - Weight 99 kg (218 lb 3.2 oz) 10/12/2018 5:43 AM GUARD LIEUTENANT Height 182.9 cm (6') 10/12/2018 5:43 AM GUARD LIEUTENANT Body Mass Index 29.59 10/12/2018 5:43 AM GUARD LIEUTENANT Plan of Treatment Not on file Medical Devices Implanted Type Area Klystrom Tube Tester Device Shelf Model / Identifier Expiration Serial / Lot Date Stent Ureteral Contour Soft Percuflex [id number] Stent Right: [employer]LEK TON 07/20/2021 [id number] / Implanted: Qty: 1 on 10/12/2018 by Sushil Garcia MD at [facility] [employer] / [id number] Insurance Payer Benefit Plan / Subscriber ID Effective Phone Address T ype Group Dates MEDICARE MEDICARE [id number] 2004-Prese [phone] ATTN CLAI MS Medicare nt 40 [address] [place] [address] BCBS BCBS OF [place] [id number] 2018-Prese [phone] [address] [address] [address] nt [address] [place] [address] Care Teams Ore Storage Drier Relationship Specialty Start Date End Date Dalia Tracy MD PCP - General Family Practice 10/12/[address] [address]
--- OUTSIDE RECORDS SUMMARY | 2022-09-02 03:27 | XMS_ITS | Encounter Summary ---
:1935 Author Organization [facility] Address [address] [place] [address]. [place] [address] Care Team Providers Name Role Phone Dalia Tracy MD Primary Care Provider [phone] Reason for Visit Auth/Cert Specialty Diagnoses / Procedures Referred By Contact Refer red To Contact Surgery Diagnoses BLADDER CANCER Periop Services Procedures COMBINED CYSTOSCOPY, TRANSURETHRAL RESECTION (TUR) TUMOR BLADDER [address] [place] [address] Phone: Referral ID Status Reason Start Date Expiration Date Visits Requ ested Visits Authorized [id number] 1 1 Encounter Details Date Type Department Care Team Description 10/12/2018 Surgery [facility] Bulmaro Dickson MD COMBINED CYSTOSCOPY, [facility] UROLO GY PA BLADDER BIOPSY & Services [address] FULGURATION, BILATERAL [address] [place] [address] [address] RETROGRADES, RIGHT [address] [place] [address] [phone] Surgery Details Date/Time Status Location OR Service Patient Case Class Case Tr auma Class Type Case? 10/12/18 7:20 Posted OR OR M 18 Urology Same Day AM Surgery Panel 1 Procedure LRB Anes Op Region Wound Class Commen ts COMBINED CYSTOSCOPY, N/A General Urethra II-Clean Contam inated BLADDER BIOPSY & FULGURATION, BILATERAL RETROGRADES, RIGHT SSTENT PLACEMENT COMBINED CYSTOSCOPY, Bilateral General Urethra II-Clean Contam inated RETROGRADES, RIGHT INSERT STENT URETER(S) Cystoscopy, fulgurate N/A Urethra II-Clean Conta minated bladder tumor, combined Surgeon Surgeon Role Service Panel Bulmaro Dickson [...] Sign Reading Time Taken Comments Blood Pressure 162/87 10/12/2018 5:43 AM COREMAKING SUPERVISOR Pulse - - Temperature 35.6 ??C (96 ??F) 10/12/2018 5:43 AM COREMAKING SUPERVISOR Respiratory Rate 16 10/12/2018 5:43 AM COREMAKING SUPERVISOR Oxygen Saturation 97% 10/12/2018 5:43 AM COREMAKING SUPERVISOR Inhaled Oxygen Concentration - - Weight 99 kg (218 lb 3.2 oz) 10/12/2018 5:43 AM COREMAKING SUPERVISOR Height 182.9 cm (6') 10/12/2018 5:43 AM COREMAKING SUPERVISOR Body Mass Index 29.59 10/12/2018 5:43 AM COREMAKING SUPERVISOR documented in this encounter Discharge Instructions Discharge [...] or concerns about your procedure, call Dr. Dickson at [phone] MAKING SUPERVISOR documented in this encounter Medications at Time [...] for the 10/12/2018 admission is complete. See [facility] admission navigator for prior to admission medications Medication history source reliability:Good Medication history interview source(s):Patient Medication history resources (including written lists, pill bottles, clinic record):None Primary pharmacy.[facility] Additional medication history information not noted on [facility] med list :None Time spent in this [...] mouth daily 10/11/2018 at AMYes Reported, Patient MAKING SUPERVISOR documented in this encounter Nursing Notes Yahaira Cisneros RN - 10/12/2018 10:32 AM CST PNDS met, po per I&O sheet. Pt dressed, up in recliner and transported to Phase 2. Catheter [facility] with and son. MAKING SUPERVISOR Cecilia Glynn RN - 10/12/2018 9:11 AM CST Covering for 15 min break. MAKING SUPERVISOR documented in this encounter Miscellaneous Notes Op [...] be superficial; final pathology pending. Placementof a 6-Wolof x 26 cm stent secondary to the [...] any obvious filling defects not ed. A Bentson wire was placed into the right ureteral orifice and a 6-Wolof x 26 cm stent then was placed [...] No evidence of bleeding was noted. A 16-Wolof Nathan catheter placed and irrigated clear. He was given 10 mg Lasix and a B and O suppository and taken to the recovery room in stable condition. The patient will require a second procedure to remove his stent in approximately 1 week, which will be done in the office. BULMARO DICKSON MD MT: [id number] Name: FERMÍN HEATON Account: [id number] : 1935 Procedure Date: 10/12/2018 Document: [id number] cc: Primary Care Physician MAKING SUPERVISOR Brief Op Note - Bulmaro Dickson MD - 10/12/2018 8:21 AM CST preop- recurrent superficial bladder tumors Postop same-tumor close to rt orifice Procedure - cysto,retrogrades, rt stent bladder bx's and fulgaration. 1cm area anest- gen Surgeon -sedrick samuel 5cc. Findings-multiple superficial bladder tumors. Rt stent 4de20li. MAKING SUPERVISOR documented in this encounter Plan of Treatment Not on filedocumented as of this encounter Procedures Procedure Name Priority Date/Time Associated Comments Diagnosis SURGICAL PATHOLOGY Routine 10/12/2018 7:55 AM Res ults for this EXAM COREMAKING SUPERVISOR procedure are i n the results section. XR SURGERY WYATT Routine 10/12/2018 7:50 AM Result s for this FLUORO LESS THAN 5 COREMAKING SUPERVISOR procedure are in MIN W STILLS the results section. CYSTOSCOPY, WITH 10/12/2018 7:20 AM BLADDER CANCER BLADDER NEOPLASM COREMAKING SUPERVISOR FULGURATION CYSTOSCOPY, WITH 10/12/2018 7:20 AM BLADDER CANCER RETROGRADE PYELOGRAM COREMAKING SUPERVISOR AND URETERAL STENT INSERTION CYSTOSCOPY, WITH 10/12/2018 7:20 AM BLADDER CANCER BLADDER BIOPSY COREMAKING SUPERVISOR LAB RESULT - HIM SCAN 09/24/2018 12:00 AM COREMAKING SUPERVISOR EKG CARDIAC - HIM 09/24/2018 12:00 SCAN AM COREMAKING SUPERVISOR documented in this encounter Results Surgical pathology exam (10/12/2018 7:55 AM COREMAKING SUPERVISOR) Component Value Ref Test Analysis Performed At [facility] [employer] Range Method Time Signature Copath Report Patient Name: FERMÍN HEATON MR#: [id number] Specimen #: [id number] Collected: 10/12/2018 Received: 10/12/2018 [...] is received in formalin, labeled with the mayito juarez's name and date of , and designated bladder tumor. It consists of two pink-stein, focally hemorr hagic soft tissue fragments, measuring 0.2 cm and 0.3 cm in greatest dimension. ??Entirely submitted in one ca ssette. B. The specimen is received in formalin, labeled with the mayito juarez's name and date of , and designated bladder dome biopsy. It consists of a single 0.6 cm pink-t an, focally hemorrhagic soft tissue fragment. Submitted in toto in one cassette. (Dictated by: MAYITO Freire([facility]) 10/12/2018 12:10 PM) MICROSCOPIC: Noted is the reported history (per available electronic medi bong record) including urinary bladder involved by [...] was reviewed within the department by multiple [facility] er members (DB, LV) who concur with the diagnoses. CPT Codes: A: 28395-JH6 B: 67027-NS9 TESTING LAB LOCATION: [address] ??[address] COLLECTION SITE: Client: [facility] Location: SHOR (S) Specimen (Source) Anatomical Collection Method Collection Time Re ceived Time Location / / Volume Laterality Tissue specimen URINARY BLADDER 10/12/2018 7:55 AM (specimen) STRUCTURE / COREMAKING SUPERVISOR Unknown Tissue specimen URINARY BLADDER 10/12/2018 8:13 AM (specimen) STRUCTURE / COREMAKING SUPERVISOR Unknown Bulmaro Dickson MD [facility] Performing Organization Address City/State/ZIP Code Phon e Number COPATH XR Surgery WYATT L/T 5 Min Fluoro w Stills (10/12/2018 7:50 AM COREMAKING SUPERVISOR) Anatomical Region Laterality Modality Abdomen/Pelvis Radio Fluoroscopy Specimen (Source) Anatomical Location Collection Method / Collectio n Time Received Time / Laterality Volume Impressions 10/12/2018 10:22 AM COREMAKING SUPERVISOR IMPRESSION: A total of three spot fluoroscopic images obtained during retrograde bilateral myelograms. No hydr onephrosis on the left. Perhaps minimal hydronephrosis on the ri ght with ureteral stent in place on the right at completion. Total fluoroscopic time is 0.2 minutes. ALEJANDRINA UMAÑA MD Narrative 10/12/2018 10:22 AM COREMAKING SUPERVISOR SURGERY C-ARM FLUOROSCOPY LESS THAN FIVE MINUTES WITH STILLS 10/12/2018 7:50 AM HISTORY: Bilateral retrogrades. COMPARISON: None. Procedure Note Alejandrina Umaña MD - 10/12/2018 SURGERY C-ARM FLUOROSCOPY LESS [...] Total fluoroscopic time is 0.2 minutes. ALEJANDRINA UMAÑA MD Bulmaro Dickson MD IMG DIAGNOSTIC IMAGING ORDER KAZ LAB RESULT - HIM SCAN (09/24/2018 12:00 AM COREMAKING SUPERVISOR) Specimen (Source) Anatomical Location Collection Method / Collectio n Time Received Time / Laterality Volume 09/24/2018 Narrative This result has an attachment that is no t available. Provider Outside NON-BEAKER LAB TESTING EKG CARDIAC - HIM SCAN (09/24/2018 12:00 AM COREMAKING SUPERVISOR) Specimen (Source) Anatomical Location Collection Method / Collectio n Time Received Time / Laterality Volume 09/24/2018 Narrative This result has an attachment that is no t available. Provider Outside ECG ORDERABLES documented in this encounter Visit Diagnoses Not on filedocumented in this encounter Administered Medications Inactive Administered Medications - up to 3 most recent administrations Medication Order MAR Action Action Date Dose Rate Site iopamidol (ISOVUE-300) Given 10/12/2018 7:51 AM 20 mLs Operative IV solution 61% COREMAKING SUPERVISOR Site/Surgical S ite PRN, Starting on Fri10/12/18 at 0751, Intra-procedure sterile water irrigation Given 10/12/2018 8:22 AM 3,000 mLs Operative (bag) COREMAKING SUPERVISOR Site/Surgical S ite PRN, Intra-procedure, Starting on Fri10/12/18 at 0741, Until Fri10/12/18 at 1032 Given 10/12/2018 7:41 AM COREMAKING SUPERVISOR 3,000 mLs Opera tive Site/Surgical Site tolterodine ER (DETROL LA) 24 hr capsule 4 mg Given 10/12/2018 9:09 AM COREMAKING SUPERVISOR 4 mg 4 mg, Oral, ONCE, On Fri10/12/18 at 0845, For 1 dose, One time prior to discharge., Post-procedure documented in this encounter Active and Recently Administered Medications Times are shown in COREMAKING SUPERVISOR. Scheduled Medication Order 10/10/2018 10/11/2018 10/12/2018 ceFAZolin (ANCEF) intermittent infusion 2 g in 100 mL dextrose PRE-MIX (COMPLETED) 0732 (Given - Provid er: Lilibeth Howard APRN CRNA) 2 g, Intravenous, PRE-OP/PRE-PROCEDURE, Starting 10/12/18 at 0541, For 1 dose, Give first dose within 1 hour PRIOR to incision. If patient weight is greater than or equal to 120 kg increase dose to 3 g., Indications: Perioperative Pharmacoprophylaxis, Pre-procedu re tolterodine ER (DETROL LA) 24 hr capsule 4 mg (COMPLETED) 09 (Given - Provider: Cecilia Glynn RN) 4 mg, Oral, ONCE, On 10/12/18 at 0845 , For 1 dose, One [...] 1032 documented in this encounter Care Teams Vending Machine Technician Relationship Specialty Start Date End Date Dalia Tracy MD PCP - General Family Practice 10/12/18 [place] [address] documented as of this encounter
--- OUTSIDE RECORDS SUMMARY | 2022-09-02 03:28 | XMS_ITS | Encounter Summary ---
:1935 Author Organization [facility] Address [address] [place] [address] Care Team Providers Name Role Phone Unavailable Primary Care Provider Unavailable Encounter Details Date Type Department Care Team Description 10/18/2005 Results [facility] Maynor fish, Alexis Lopez MD Hospital Results [facility] [address] [place] [address] (Wo rk) Social History Tobacco Use Types Packs/Day Years Used Date Smoking Tobacco: Never Assessed Sex Assigned at Date Recorded Not on file documented as of this encounter Plan of Treatment Not on filedocumented as of this encounter Procedures Procedure Name Priority Date/Time Associated Diagnosis Comme [facility] CT ABDOMEN W/O Routine 10/18/2005 11:14 AM Res ults for this CONTRAST LAYER OUT PLATE GLASS procedure are i n the results section. documented in this encounter Results CT SCAN ABDOMEN (10/18/2005 11:14 AM LAYER OUT PLATE GLASS) Anatomical Region Laterality Modality Other Specimen (Source) Anatomical Collection Method Collection Time Re ceived Time Location / / Volume Laterality 10/18/2005 11:14 AM LAYER OUT PLATE GLASS Impressions 10/18/2005 4:15 PM L[address]ER OUT PLATE GLASS CT ABDOMEN AND PELVIS WITHOUT AND WITH I V CONTRAST MATERIAL ?? HISTORY: ??Gross hematuria. ? FINDINGS: ? 1. ?? There ?is an ill-def ined soft tissue density in the right side of the urinary ?karunae sam suggests primary neoplasm. ? 2. ?? No ?renal calculi or hydronephrosis or no renal masses seen. ? 3. ?? Exam ?is otherwise u nremarkable. Alexis Sanchez MD SPECIAL IMAGING STUDIES documented in this encounter Visit Diagnoses Not on filedocumented in this encounter
--- OUTSIDE RECORDS SUMMARY | 2022-09-02 03:28 | XMS_ITS | Encounter Summary ---
:1935 Author Organization [facility] Address [address] [place] [address]. [place] [address] Care Team Providers Name Role Phone Alexis Sanchez MD Primary Care Provider Reason for Visit Auth/Cert - Closed Specialty Diagnoses / Procedures Referred By Contact Refer red To Contact Surgery Diagnoses bladder tumor Sh Periop Services Procedures COMBINED CYSTOSCOPY, TRANSURETHRAL RESECTION (TUR) TUMOR BLADDER COMBINED CYSTOSCOPY, RETROGRADES [address] [address] Phone: Referral ID Status Reason Start Date Expiration Date Visits Requ ested Visits Authorized [id number] Closed 1 1 Encounter Details Date Type Department Care Team Description 09/14/2012 Hospital Encounter [facility] Bulmaro Dickson B ladder cancer (H) Sarai DENTON (Primary Dx) PreOP/Phase II [place] [address], UROLOGY PA [address] [address] [place] [id number] Social History Tobacco Use Types Packs/Day Years Used Date Smoking Tobacco: Former Smokeless Tobacco: Former Qu it: 09/14/1971 Alcohol Use Standard Drinks/Week Comments Yes 0 (1 standard drink = 0.6 oz pure alcoho l) Sex Assigned at Date Recorded Not on file documented as of this encounter Last Filed Vital Signs Vital Sign Reading Time Taken Comments Blood Pressure 120/72 09/14/2012 10:25 AM JOURNALISM INSTRUCTOR Pulse - - Temperature 36.3 ??C (97.4 ??F) 09/14/2012 9:05 AM JOURNALISM INSTRUCTOR Respiratory Rate 16 09/14/2012 10:25 AM JOURNALISM INSTRUCTOR Oxygen Saturation 95% 09/14/2012 10:25 AM JOURNALISM INSTRUCTOR Inhaled Oxygen Concentration - - Weight 93.4 kg (206 lb) 09/14/2012 6:05 AM JOURNALISM INSTRUCTOR Height 185.4 cm (6' 1) 09/14/2012 6:05 AM JOURNALISM INSTRUCTOR Body Mass Index 27.18 09/14/2012 6:05 AM JOURNALISM INSTRUCTOR documented in this encounter Discharge Instructions Discharge [...] Don???t use leg bag while in bed. NALISM INSTRUCTOR documented in this encounter Medications at Time of Discharge Medication Sig Dispensed Refills Start Date End Date ciprofloxacin (CIPRO) 500 Take 1 tablet by 6 tablet 0 08/2910/09/2018 MG tabletIndications: mouth 2 times Bladder cancer (H) daily. documented as of this encounter Progress Notes Bulmaro Dickson MD - 09/18/2012 12:49 PM CST NALISM INSTRUCTOR documented in this encounter H&P Notes Bulmaro Dickson MD - 09/17/2012 4:58 PM CST NALISM INSTRUCTOR documented in this encounter Nursing Notes Idania Be RN - 09/14/2012 10:53 AM CST BACK FOR CATHETER TEACHING. NALISM INSTRUCTOR documented in this encounter OR Notes OR Anesthesia - Bulmaro Dickson MD - 09/18/2012 12:16 PM CST NALISM INSTRUCTOR documented in this encounter Miscellaneous Notes Op [...] bilateral retrogrades. BRIEF HISTORY AND PHYSICAL: Fermín Heaton is a very pleasant 76-year-old male with [...] prepped in a sterile fashion. A 22 [place]se was visually passed. Urethra was normal. Prostate [...] obstruction or any filling defects. The 26 [place]se continuous flow resectoscope then was visually passed [...] BULMARO DICKSON MD MT: [id number] Name: FERMÍN HEATON Account: [id number] : 1935 Procedure Date: 09/14/2012 Document: [id number] NALISM INSTRUCTOR documented in this encounter Plan of Treatment Not on filedocumented as of this encounter Procedures Procedure Name Priority Date/Time Associated Comments Diagnosis SURGICAL PATHOLOGY Routine 09/14/2012 8:01 AM Res ults for this EXAM JOURNALISM INSTRUCTOR procedure are i n the results section. XR PYELOGRAM RETRO Routine 09/14/2012 7:55 AM Res ults for this SURGERY G/E 1 FILMS JOURNALISM INSTRUCTOR procedur e are in the results section. CYSTOSCOPY, WITH 09/14/2012 7:21 AM bladder tumor RETROGRADE PYELOGRAM JOURNALISM INSTRUCTOR CYSTOSCOPY, WITH 09/14/2012 7:21 AM bladder tumor TRANSURETHRAL JOURNALISM INSTRUCTOR RESECTION BLADDER TUMOR documented in this encounter Results Surgical pathology exam (09/14/2012 8:01 AM JOURNALISM INSTRUCTOR) Component Value Ref Test Analysis Performed At [facility] Range Method Time Signature Copath Patient Name: FERMÍN HEATON Report MR#: [id number] Specimen #: [id number] Collected: 09/14/2012 Received: 09/14/2012 Reported: 09/15/2012 13:38 [...] been obtained. BCT/el 09/15/2012 TESTING LAB LOCATION: [address] ??[address] COLLECTION SITE: Client: [facility] Location: SHOR (S) Specimen Anatomical Collection Method Collection Time Receive d Time (Source) Location / / Volume Laterality 09/14/2012 8:01 AM 2 9:10 JOURNALISM INSTRUCTOR AM JOURNALISM INSTRUCTOR Bulmaro Dickson MD [facility] Performing Organization Address City/State/ZIP Code Phon e Number COPATH X-ray Surgery retro pylogram G/E 1 films (09/14/2012 7:55 AM JOURNALISM INSTRUCTOR) Anatomical Region Laterality Modality Abdomen/Pelvis Computed Radiography Specimen (Source) Anatomical Collection Method Collection Time Re ceived Time Location / / Volume Laterality 09/14/2012 7:55 AM JOURNALISM INSTRUCTOR Narrative 09/14/2012 4:36 PM JOURNALISM INSTRUCTOR SURGERY ??RETROGRADE PYELOGRAM GREATER T TORREZ ONE [...] KAZ documented in this encounter Visit Diagnoses Diagnosis Bladder cancer (H) - Primary Malignant neoplasm of bladder, part unsp ecified documented in this encounter Administered Medications Inactive Administered Medications - up to 3 most recent administrations Medication Order MAR Action Action Date Dose Rate Site fentaNYL (SUBLIMAZE) injection Given 09/14/2012 9:07 AM JOURNALISM INSTRUCTOR 25 m cg 25-50 mcg 25-50 mcg, Intravenous, EVERY 2 MIN PRN, other, acute pain while in PACU., Starting on Fri09/14/12 at 0835, MAX cumulative dose = 250 mcg. Use Fentanyl initially, as a short acting agent for acute pain control. If insufficient, or a longer acting agent is needed, begin Morphine or Hydromorphone if ordered., PACU Given 09/14/2012 8:46 AM JOURNALISM INSTRUCTOR 25 mcg lactated ringers infusion New Bag 09/14/2012 10:25 AM JOURNALISM INSTRUCTOR 1,000 mLs 100 mL/hr at 100 mL/hr, Intravenous, CONTINUOUS, Continue until IV catheter is weaned, PACU/Phase II, Starting on Fri09/14/12 at 0845, Until Fri09/14/12 at 1052 documented in this encounter Active and Recently Administered Medications Times are shown in JOURNALISM INSTRUCTOR. Scheduled Medication Order 09/12/2012 09/13/2012 09/14/2012 gentamicin (GARAMYCIN) IVPB 80 mg (COMPLETED) 0735 (Given - Provider: Ansley Suresh, WET PRESS TENDER GEOSPATIAL INTELLIGENCE ANALYST) 80 mg, Intravenous, for 30 Minutes, PRE- OP/PRE-PROCEDURE, For 1 dose, Pre-procedure Continuous Medication Order 09/12/2012 09/13/2012 09/14/2012 lactated ringers infusion (CANCELED) 1025 (New Bag - Provider: Aliyah Choudhary, LIZ) at 100 mL/hr, Intravenous, CONTINUOUS, C ontinue until IV catheter is weaned, PACU/Phase II PRN Medication Order 09/12/2012 09/13/2012 09/14/2012 fentaNYL (SUBLIMAZE) injection 25-50 mcg (CANCELED) 0846 (Given - Provider: Idania Be, RN)0907 (Given - Provider: Idania Be, LIZ) 25-50 mcg, Intravenous, EVERY 2 MIN PRN, [...] Intra-procedure documented in this encounter Care Teams Viner Operator Relationship Specialty Start Date End Date Alexis Sanchez MD PCP - General Family Practice 09/04/12 10/29/[address] [address] documented as of this encounter
--- OUTSIDE RECORDS SUMMARY | 2022-09-02 03:28 | XMS_ITS | Encounter Summary ---
:1935 Author Organization [facility] Address [address] [place] [address] Care Team Providers Name Role Phone Unavailable Primary Care Provider Unavailable Encounter Details Date Type Department Care Team Description 10/16/2005 Emergency room Rashel Wood MD EMERGENCY PHYSIC [facility] [address] [facility] [address] [place] [address] (Wo rk) Social History Tobacco Use Types Packs/Day Years Used Date Smoking Tobacco: Never Assessed Sex Assigned at Date Recorded Not on file documented as of this encounter Progress Notes Rashel Wood MD - 10/16/2005 11:59 PM SENIOR ANALYST PROGRAMMER PRELIMINARY CHIEF COMPLAINT: Hematuria. HISTORY OF PRESENT ILLNESS: This 69-year-old gentleman presents to the emergency department statingthat when he was going to bathroom this morning, he passed 2 small clots and then noticed some bloodin his urine. He says he had this happened before and then it has subsequently gone away. He does have a remote history of a few surgeries for inguinal hernias that he says he has some scar tissue. He does use Flomax for prior UTIs but he denies any UTI like symptoms. No hesitancy, no urgency, no fevers, chills, no lower abdominal pain, no bladder spasm like pain. He says that he feels great. ALLERGIES: None. CURRENT MEDICATIONS: Flomax. PAST MEDICAL HISTORY: Prior UTIs. FAMILY HISTORY: Noncontributory. SOCIAL HISTORY: Nonsmoker and nondrinker. REVIEW OF SYSTEMS: See HPI, all other systems are reviewed and are negative. PHYSICAL EXAMINATION: VITAL SIGNS: Blood pressure 130/85, pulse 84, respirations, temperature 97.9 and oxygen saturation 95% on room air. GENERAL: This is a 69-year-old gentleman who is very pleasant to talk to. HEENT: Normocephalic and atraumatic. Mucous membranes are moist. Pupils are equal, round and reactive to light. Oropharynx is clear. HEART: Regular rate and rhythm. LUNGS: Breath sounds are clear bilaterally. ABDOMEN: Soft and nontender. EXTREMITIES: Strength is 5/5. NEUROLOGIC: Nonfocal. SKIN: Warm and dry. EMERGENCY DEPARTMENT COURSE: Urinalysis was done on this patient and did show significant blood in the urine but no white blood cells and a significant transitional epithelial cells. The patient did have some bacteria in the urine; however I feel that this may be some contamination as this certainly does not have any white blood cells and is not symptomatic at all and negative nitrites and negative leukocyte esterase. I told him that he needs to follow up with his family doctor in the next 2 days and if he begins to feel sick or have any urinary tract infection type symptoms that he is to get a repeat urinalysis and may need to be on antibiotics. At this time, I do not feel antibiotics are warranted. I am not quite sure what is causing his hematuria at this time, it certainly needs close follow up but with stable vital signs and a normal exam here, I feel safe to send this patient out at this time with close followup. DIAGNOSIS: Pain with hematuria. RASHEL WOOD MD MT: [id number] Name: FERMÍN HEATON Account: [id number] : 1935 Visit Date: 10/16/2005 Document: [id number] OR ANALYST PROGRAMMER documented in this encounter Plan of Treatment Not on filedocumented as of this encounter Visit Diagnoses Not on filedocumented in this encounter
--- OUTSIDE RECORDS SUMMARY | 2022-09-02 03:28 | XMS_ITS | Encounter Summary ---
:1935 Author Organization [place] Address [address] [place] [address]. [place] [address] Care Team Providers Name Role Phone Unavailable Primary Care Provider Unavailable Encounter Details Date Type Department Care Team Description 11/05/2005 Results Only [facility] Sushil Dickson MD [facility] Results [facility] [address] [facility] [place] [id number] (Wo rk) Social History Tobacco Use Types Packs/Day Years Used Date Smoking Tobacco: Never Assessed Sex Assigned at Date Recorded Not on file documented as of this encounter Plan of Treatment Not on filedocumented as of this encounter Procedures Procedure Name Priority Date/Time Associated Diagnosis Comme [facility] FLUOROSCOPY, UP Routine 11/05/2005 11:40 AM Re sults for this TO 1 HOUR FELLED SEAM OPERATOR CHAINSTITCH procedure are i n the results section. documented in this encounter Results FLUOROSCOPE EXAMINATION (11/05/2005 11:40 AM FELLED SEAM OPERATOR CHAINSTITCH) Anatomical Region Laterality Modality Other Specimen (Source) Anatomical Collection Method Collection Time Re ceived Time Location / / Volume Laterality 11/05/2005 11:40 AM FELLED SEAM OPERATOR CHAINSTITCH Impressions 11/08/2005 1:46 PM FELLED SEAM OPERATOR CHAINSTITCH BILATERAL RETROGRADE PYELOGRAM ?? HISTORY: ??Bladder tumor on 11/05/05. ? TECHNIQUE: ??0.1 minutes fluoroscopy emma e for Dr. Dickson. ??Two images submitted. ? FINDINGS: ??Film one demonstrates retrog rade opacification of right ureter and collecting system. ??There is some irregularity or filling defect along the lower right ureter at t he level of the mid sacroiliac joint. ??I cannot rule out a filling defect here, but there is no hydroureter on the right. ??There is an area of slightly decreased enhancement in the infundibulu m to the upper pole right calices which is improved on film number two. ? Film number two also demonstrates opacif ication of a normal appearing left pelvicaliceal system and ureter. ? IMPRESSION: 1) ?Filling defect or incomple te opacification right ureter at the level of the sacroiliac joint. ?? 2) ?I cannot exclude a tiny fi lling defect versus incomplete opacification upper right infundibulum. 3) ?Appearance of the calices and proximal right ureter would raise the question of a very mild ureter opelvic junction obstruction on the right. ? Sushil Dickson MD SPECIAL IMAGING STUDIES documented in this encounter Visit Diagnoses Not on filedocumented in this encounter
--- OUTSIDE RECORDS SUMMARY | 2022-09-02 03:28 | XMS_ITS | Encounter Summary ---
:1935 Author Organization [place] Address [address] [place] [address] Care Team Providers Name Role Phone Unavailable Primary Care Provider Unavailable Encounter Details Date Type Department Care Team Description 08/27/2007 [facility] [address] [place] [address] (Wo rk) Social History Tobacco Use Types Packs/Day Years Used Date Smoking Tobacco: Never Assessed Sex Assigned at Date Recorded Not on file documented as of this encounter Plan of Treatment Not on filedocumented as of this encounter Procedures Procedure Name Priority Date/Time Associated Diagnosis Comme nts CHEST TWO VIEWS, Routine 08/27/2007 2:20 PM Re sults for this FRONT/LAT ACOUSTICAL MATERIAL WORKER procedure are i n the results section. documented in this encounter Results CHEST X-RAY 2 VW (08/27/2007 2:20 PM ACOUSTICAL MATERIAL WORKER) Anatomical Region Laterality Modality Other Specimen (Source) Anatomical Collection Method Collection Time Re ceived Time Location / / Volume Laterality 08/27/2007 2:20 PM ACOUSTICAL MATERIAL WORKER Impressions 08/27/2007 3:37 PM ACOUSTICAL MATERIAL WORKER EXAM: ??CHEST TWO VIEW* HISTORY: ??Cough. IMPRESSION: There is a density at the le ft costophrenic angle. Although it appears somewhat rounded on the first PA view, it appears more linear on the second PA view and is likely some chronic scarring or possibly atelectasis. Otherwise negat jo ann chest. Rogelio Lynn MD GENERAL IMAGING documented in this encounter Visit Diagnoses Not on filedocumented in this encounter
--- OUTSIDE RECORDS SUMMARY | 2022-09-02 03:28 | XMS_ITS | Clinical Summary ---
:1935 Author Organization [employer] [facility] [place] [address] Care Team Providers Name Role Phone Vincent Siegel MD Primary Care Provider Allergies Active Allergy Reactions Severity Noted Date Comments Hydrocodone-Acetaminophen Vomiting 05/17/2014 Medications Medication Sig Dispensed Refills Start Date End Date Status amLODIPine (NORVASC) Take 10 mg by mouth 0 2 Active 10 mg tablet once daily. levothyroxine Take 50 mcg by mouth 0 01/15/2022 Active (SYNTHROID) 50 mcg once daily. tablet acetaminophen Take 2 Tablets (650 0 02/13/2022 Active (TYLENOL) 325 mg mg) by mouth every 4 tablet hours if needed for Pain (For mild pain.). Max acetaminophen dose: 4000mg in 24 hrs. polyethylene Drink 3 liters the 4000 mL 0 06/11/2022 Active glycol-electrolyte day before (GOLYTELY) colonoscopy [id number] -5.86 appointment and gram drink 1 liter 6 suspensionIndication hours before s: Encounter for colonoscopy screening appointment colonoscopy Active Problems Problem Noted Date Bradycardia 02/12/2022 Symptomatic AVB (atrioventricular block) 02/12/2022 Adenomatous colon polyp 04/21/2015 Overview: Colonoscopy 03/2015 polyp repeat in 5 yea rs Colonoscopy 11/2016 polyp repeat in 5 yea rs Sensorineural hearing loss, bilateral 05/19/2014 Encounters Date Type Specialty Care Team Description 06/10/2022 Telephone Eduardo Mathias MD Scr eening (/) from Last 3 Months Immunizations Name Administration Dates Next Due COVID-19 vaccine (Pfizer-BioNTmYwindow 30mcg/0.3mL) FRANTZ LIN 09/03 Social History Tobacco Use Types Packs/Day Years Used Date Former Smoker Quit: 08/29/19 72 Smokeless Tobacco: Never Used Tobacco Cessation: Counseling Given: No Alcohol Use Standard Drinks/Week Comments Yes 0 (1 standard drink = 0.6 oz pure alcoho l) Sex Assigned at Date Recorded Not on file Obstetrics History Last Filed Vital Signs Vital Sign Reading Time Taken Comments Blood Pressure 124/76 05/22/2022 9:20 AM CDT Pulse 82 05/22/2022 9:20 AM CDT Temperature 36.7 ??C (98.1 ??F) 02/13/2022 8:09 AM CDT Respiratory Rate 22 02/13/2022 8:09 AM CDT Oxygen Saturation 95% 05/22/2022 9:20 AM CDT Inhaled Oxygen Concentration - - Weight 91.6 kg (202 lb) 05/22/2022 9:20 AM CDT Height 182.9 cm (6') 05/22/2022 9:20 AM CDT Body Mass Index 27.4 05/22/2022 9:20 AM CDT Plan of Treatment Not on file Results Not on filefrom Last 3 Months Insurance Payer Benefit Plan / Subscriber ID Effective Dates Phone Addre ss Type Group MEDICARE PART A MEDICARE PART A [id number] 2001-Presen ATTN: CLAIMS - HB USE ONLY HB ONLY t [address] [place] [address] MEDICARE - PB MEDICARE PB [id number] 2004-Presen ATTN : CLAIMS USE ONLY ONLY t [address] [place] [address] BLUE CROSS BLUE CROSS OF [id number] 2016-Pres [address] [place] [phone] (Home) [place] [address] Advance Directives Latest Code Status on File Code Status Date Activated Date Inactivated Comments Full Code 02/11/2022 5:42 PM 02/13/2022 3:57 PM Code Status Discussion: Reviewed Preferences Care Teams Critical Care Educator Relationship Specialty Start Date End Date Vincent Siegel MD PCP - General Family Practice 05/22/[address] [place] [address]
--- OUTSIDE RECORDS SUMMARY | 2022-09-02 03:28 | XMS_ITS | Encounter Summary ---
:1935 Author Organization [place] Address [facility] [place] [address] Care Team Providers Name Role Phone Unavailable Primary Care Provider Unavailable Encounter Details Date Type Department Care Team Description 11/05/2005 Operative Report Sushil Dickson MD ([employer]) [facility] [address] [facility] [place], [place] [address] (Wo rk) Social History Tobacco Use Types Packs/Day Years Used Date Smoking Tobacco: Never Assessed Sex Assigned at Date Recorded Not on file documented as of this encounter Progress Notes Sushil Dickson - 11/05/2005 11:59 PM MOP WORKER PRELIMINARY PREOPERATIVE DIAGNOSIS: 1. Hematuria. 2. Multiple bladder papillary bladder tumors. POSTOPERATIVE DIAGNOSIS: 1. Hematuria. 2. Multiple bladder papillary bladder tumors. PROCEDURE: 1. Cystourethroscopy, bilateral retrogrades. 2. Transurethral resection of multiple bladder tumors. ANESTHESIA: Spinal. Estimated blood loss less than 20 cc. SUMMARY OF FINDINGS: Multiple large papillary bladder tumors appear to be superficial, pathology pending. Retrogrades upper tracts normal. BRIEF HISTORY AND PHYSICAL: Fermín Gutierrez is a 69-year-old male with a history of hematuria. The patient denied any significant voiding symptoms, although he does take Flomax. He underwent a diagnostic cystoscopy and was found to have multiple papillary bladder tumors located to the right side of his bladder just lateral to the right ureteral orifice and posterior. They were somewhat large but appeared to be papillary and superficial. The rest of the bladder was negative. CT scan was negative forany obvious metastatic disease. There was no evidence for hydronephrosis or any obvious renal masses. The patient is now scheduled for definitive treatment. DESCRIPTION OF PROCEDURE: Proper permits were obtained and signed. The patient was taken to the operating suite. After adequate spinal anesthesia, he was placed in the dorsal lithotomy position. The skin was prepped and draped in the usual sterile fashion. A 22 Kosovan Storz cystoscope was gently passed. The urethra was normal. The prostate measured approximately 3 cm and was relatively open. There was approximately a 3 cm papillary tumor located to the right side of the bladder just lateral to the right ureteral orifice. The orifice was not directly involved. There was a second papillary tumor measuring approximately 1.5 cm located somewhat posterior. The rest of the bladder was essentially negative. The 26 Kosovan continuous flow resectoscope then was gently passed into the bladder. The patient underwent resection of the bladder tumors including biopsies of the base. They did appear to be superficial papillary tumors. Final pathology is pending. The bases were then cauterized. No evidence of obvious bleeding. A Nathan catheter was placed, irrigated clear and he was taken to the Recovery Room in stable condition. SUSHIL DICKSON MD MT: [id number] Name: FERMÍN GUTIERREZ MRN: [id number] Account: [id number] : 1935 Procedure Date: 11/05/2005 Document: [id number] cc: Alexis Sanchez MD WORKER documented in this encounter Plan of Treatment Not on filedocumented as of this encounter Visit Diagnoses Not on filedocumented in this encounter
--- OUTSIDE RECORDS SUMMARY | 2022-09-02 03:28 | XMS_ITS | Encounter Summary ---
:1935 Author Organization [place] Address [address] [place] [address] Care Team Providers Name Role Phone Unavailable Primary Care Provider Unavailable Encounter Details Date Type Department Care Team Description 10/16/2005 Historic Results INTERFACED REPORT Reji Jackson MD [facility] [address] [place], [place] [phone] (Wo rk) Social History Tobacco Use Types Packs/Day Years Used Date Smoking Tobacco: Never Assessed Sex Assigned at Date Recorded Not on file documented as of this encounter Plan of Treatment Not on filedocumented as of this encounter Procedures Procedure Name Priority Date/Time Associated Comments Diagnosis UA MACROSCOPIC WITH STAT 10/16/2005 1:05 PM Re sults for this REFLEX TO MICRO CARROT HARVESTER procedure ar e in the results section. URINE MICROSCOPIC Routine 10/16/2005 1:05 PM Resu lts for this EXAM CARROT HARVESTER procedure are i n the results section. documented in this encounter Results (ABNORMAL) UA macroscopic with reflex to micro (10/16/2005 1:05 PM CARROT HARVESTER) [facility] Method Time Signature Source Midstream MISYS Urine Color Urine Yellow MISYS Appearance Urine Clear MISYS Glucose Urine Negative NEG mg/dL MISYS Bilirubin Urine Negative NEG MISYS Ketones Urine Negative NEG mg/dL MISYS Specific [place] >1.030 1.003 - MISYS Urine 1.035 Blood Urine Large (A) NEG MISYS pH Urine 5.5 5.0 - 7.0 MISYS pH Protein Albumin 30 (A) NEG mg/dL MISYS Urine Urobilinogen 0.2 0.2 - 1.0 MISYS Urine EU/dL Nitrite Urine Negative NEG MISYS Leukocyte Negative NEG MISYS Esterase Urine Specimen Anatomical Collection Method Collection Time Receive d Time (Source) Location / / Volume Laterality 10/16/2005 1:05 PM 6 1:09 CARROT HARVESTER PM CARROT HARVESTER Suleiman Jackson MD LAB - URINE ORDERABLES Performing Organization Address City/[facility] Phon e Number MISYS (ABNORMAL) Microscopic exam urine (10/16/2005 1:05 PM CARROT HARVESTER) [facility] gist Method Time Signature WBC Urine O - 2 0 - 2 MISYS /HPF RBC Urine 50-100 (A) 0 - 2 MISYS /HPF Transitional Epi Moderate (A) FEW /HPF MISYS Bacteria Urine Moderate (A) NEG /HPF MISYS Amorphous Urates Moderate (A) NEG /HPF MISYS Specimen Anatomical Collection Method Collection Time Receive d Time (Source) Location / / Volume Laterality 10/16/2005 1:05 PM 6 1:50 CARROT HARVESTER PM CARROT HARVESTER Suleiman Jackson MD LAB - URINE ORDERABLES Performing Organization Address City/State/ZIP Code Phon e Number MISYS documented in this encounter Visit Diagnoses Not on filedocumented in this encounter
--- OUTSIDE RECORDS SUMMARY | 2022-09-02 03:28 | XMS_ITS | Encounter Summary ---
:1935 Author Organization [place] Address [address] [place] [address]. [place] [address] Care Team Providers Name Role Phone Unavailable Primary Care Provider Unavailable Encounter Details Date Type Department Care Team Description 11/05/2005 Historic Results INTERFACED REPORT Kyaw Dickson MD [facility] [address] [place], [place] [address] (Wo rk) Social History Tobacco Use Types Packs/Day Years Used Date Smoking Tobacco: Never Assessed Sex Assigned at Date Recorded Not on file documented as of this encounter Plan of Treatment Not on filedocumented as of this encounter Procedures Procedure Name Priority Date/Time Associated Comments Diagnosis UREA NITROGEN (BUN) Routine 11/05/2005 10:08 AM R esults for this AFTERNOON BABYSITTER procedure are i n the results section. CREATININE Routine 11/05/2005 10:08 AM Results for this AFTERNOON BABYSITTER procedure are i n the results section. GLUCOSE Routine 11/05/2005 10:08 AM Results for this AFTERNOON BABYSITTER procedure are i n the results section. HISTOPATHOLOGY Routine 11/05/2005 12:00 AM Result s for this AFTERNOON BABYSITTER procedure are i n the results section. documented in this encounter Results Urea nitrogen (11/05/2005 10:08 AM AFTERNOON BABYSITTER) P athologist Signature Urea Nitrogen 20 7 - 30 MISYS mg/dL Specimen Anatomical Collection Method Collection Time Receive d Time (Source) Location / / Volume Laterality 11/05/2005 10:08 11/05/2005 AM AFTERNOON BABYSITTER 10:17 AM AFTERNOON BABYSITTER Sushil Dickson MD LAB - BLOOD ORDERABLES Performing Organization Address City/State/ZIP Code Phon e Number MISYS Creatinine (11/05/2005 10:08 AM AFTERNOON BABYSITTER) athologist Signature Creatinine 1.10 0.80 - MISYS 1.50 mg/dL GFR Estimate 71 >60 MISYS mL/min/1.7 m2 GFR Estimate If 86 >60 MISYS Black mL/min/1.7 m2 Specimen Anatomical Collection Method Collection Time Receive d Time (Source) Location / / Volume Laterality 11/05/2005 10:08 11/05/2005 AM AFTERNOON BABYSITTER 10:17 AM AFTERNOON BABYSITTER Sushil Dickson MD LAB - BLOOD ORDERABLES Performing Organization Address City/[facility] Code Phon e Number MISYS Glucose (11/05/2005 10:08 AM AFTERNOON BABYSITTER) athologist Signature Glucose 106 60 - 110 MISYS mg/dL Specimen Anatomical Collection Method Collection Time Receive d Time (Source) Location / / Volume Laterality 11/05/2005 10:08 11/05/2005 AM AFTERNOON BABYSITTER 10:17 AM AFTERNOON BABYSITTER Sushil Dickson MD LAB - BLOOD ORDERABLES Performing Organization Address [facility] Code Phon e Number MISYS Histopathology (11/05/2005 12:00 AM AFTERNOON BABYSITTER) Component Value Ref Test Analysis Performed At [facility] gist Range Method Time Signature Copath Report CASE: [id number] ^ [facility] Patient Name: FERMÍN GUTIERREZ MR#: [id number] Specimen #: [id number] Collected: 11/05/2005 Received: 11/05/2005 Reported: 11/06/2005 13:10 Ordering Phy(s): SUSHIL DICKSON SPECIMEN(S): Bladder,TUR FINAL DIAGNOSIS: Bladder, excision of tumor - 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 Electronically signed out by: Garret Bernabe M.D. CLINICAL HISTORY: [age] year old male. ??Bladder tumor. ??Gross hematuri a. GROSS: One specimen is received designated bladder tumor. ??The s pecimen consists of multiple similar appearing pink stein tissue fragm ents measuring 3.5 x 1.7 x 0.3 cm in aggregate. ??Specimen is ent irely submitted. ??SITRS/dj MICROSCOPIC: Examination reveals multiple fragments of a low-grade papill jadiel urothelial carcinoma. ??There is no evidence of invasion in the material submitted, although the sampling of lamina propria is limite d and there is no sampling of the muscularis to speak of. DCS/ousmane 11/06/2005 TESTING LAB LOCATION: [address] ??[id number] COLLECTION SITE: Client: [facility] Location: 73 (S) Specimen (Source) Anatomical Collection Method Collection Time Re ceived Time Location / / Volume Laterality 11/05/2005 11/06/2005 1:10 PM AFTERNOON BABYSITTER Sushil Dickson MD LAB - COPATH SPECIAL DIAG OR DERABLES Performing Organization Address City/State/ZIP Code Phon e Number COPATH documented in this encounter Visit Diagnoses Not on filedocumented in this encounter
--- OUTSIDE RECORDS SUMMARY | 2022-09-02 03:28 | XMS_ITS | Encounter Summary ---
:1935 Author Organization [place] Address [address] [place] [address] Care Team Providers Name Role Phone Unavailable Primary Care Provider Unavailable Encounter Details Date Type Department Care Team Description 08/27/2007 Emergency room Tolu Yanez MD EMERGENCY PHYSIC [facility] [address] [place] [address] (Wo rk) Social History Tobacco Use Types Packs/Day Years Used Date Smoking Tobacco: Never Assessed Sex Assigned at Date Recorded Not on file documented as of this encounter Progress Notes Rogelio Yanez - 09/09/2007 7:16 AM PRESCHOOL ASSISTANT TEACHER FINAL CHIEF COMPLAINT: Buttock and right-sided chest pain. HISTORY OF PRESENT ILLNESS: Fermín Heaton is a 71-year-old male who reports on Friday he was cutting logs on a homemade contraption involving 2 parallel logs. He was holding a chain saw and said that he slipped, he fell and the right side of his chest hit against the one log, the chain saw flew clear of him, but did not get cut. He then fell onto semi-hard dirt onto his buttocks and has had some pain since that time. He has had no cough, no fever. The pain is worse with taking a deep breath. He currently rates it at 1-2/10 pain. It is worse when he gets up or changes position however. He said he did not hit his head or black out. He has no numbness or tingling. MEDICATIONS: Flomax. ALLERGIES: Percocet and Percodan which causes vomiting. PAST MEDICAL HISTORY: Bladder problems. SOCIAL HISTORY: The patient does not smoke or drink. REVIEW OF SYSTEMS: Ten-point review of systems is negative other than mentioned in the history of present illness. PHYSICAL EXAMINATION: GENERAL: The patient is a well-developed 71-year-old male who is comfortable until he moves. VITAL SIGNS: Temperature 98.2, blood pressure 198/78, pulse 86, respirations 14, 02 saturation 97% on room air. HEENT: Normocephalic, atraumatic. There is no C, T or L-spine tenderness. He does have paraspinal tenderness along the left lower back. HEART: Regular. LUNGS: Clear. CHEST WALL: No pain with AP compression, no crepitus with palpation across the rib margins. There is swelling along the right lower rib with pain, no discrete area of pain. ABDOMEN: Soft, nontender, no guarding or rebound. PELVIS: Stable. EXTREMITIES: He has no pronator drift, 5/5 strength in his lower extremities. SKIN: Cool, pink and dry without rash or petechiae, no signs of ecchymosis. NEUROLOGIC: The patient is intact. PSYCHIATRIC: Appropriate. LABORATORY AND DIAGNOSTICS: A chest x-ray was performed which demonstrated no signs of rib fractureor infiltrate. EMERGENCY DEPARTMENT COURSE: The patient reports he is allergic to Percocet, so we did treat him with Reglan as well as Tylenol #3 which he tolerated well and will be discharged on this medication. I instructed him on the risks of forming pneumonia. I did not see a rib fracture on his chest x-ray. Heis referred to his primary care physician. He ambulated out of the ER without difficulty. PLAN: 1. Ice, ibuprofen, Tylenol for fever or pain. 2. Take deep breaths to prevent pneumonia. 3. Drink plenty of fluids. 4. Return to the ER if increase or change in pain, cough, fever, vomiting or any concerns. 5. Follow up with PMD in 4 days. DIAGNOSES: 1. Right chest wall contusion. 2. Left back strain. Electronically signed on 09/09/2007 07:15 by ROGELIO YANEZ MD MT: [id number] Name: FERMÍN HEATON Account: [id number] : 1935 Visit Date: 08/27/2007 Document: [id number] cc: Alexis Sanchez MD CHOOL ASSISTANT TEACHER documented in this encounter Plan of Treatment Not on filedocumented as of this encounter Visit Diagnoses Not on filedocumented in this encounter
--- OUTSIDE RECORDS SUMMARY | 2022-09-02 03:28 | XMS_ITS ---
:1935 Author Care Team Providers Name Role Phone GIL RIVERA MD Primary Care Provider [phone] Allergies Code Code System Name Reaction Severity Status Onset Vicodin ? ? Active 11/22/2011 Medications Name Status Start Date Stop Date ? ? amlodipine 10 mg tablet Active ? Not avai lable TAKE 1 TABLET BY MOUTH EVERY DAY cephalexin 500 mg capsule Completed ? 2020 TAKE 1 CAPSULE BY MOUTH THREE TIMES A DAY ciprofloxacin 250 mg tablet Active ? Not available ciprofloxacin 500 mg tablet Active ? Not available Take 1 tablet every 12 hours by oral route for 7 days. Fluad Quad 9558-3648(65yr up)(PF) 60 mcg (15 mcg x 4)/0.5mL IM s yringe Active ? Not available PHARMACIST ADMINISTERED IMMUNIZATION ADMINISTERED AT TIME OF DI SPENSING levothyroxine 50 mcg tablet Active ? Not available TAKE 1 TABLET BY MOUTH EVERY DAY lisinopril 5 mg tablet Active ? Not avail able TAKE 1 TABLET BY MOUTH EVERY DAY ondansetron HCl 4 mg tablet Active ? Not available TAKE 1 TABLET BY MOUTH THREE TIMES A DAY NEEDED peg 3350-electrolytes 236 gram-22.74 gram-6.74 gram-5.86 gram so lution Active ? Not available DRINK 3 LITERS (3/4 OF BOTTLE) THE DAY BEFORE & 1 LITER (REMAINIG 1/4) 6 HOURS PRIOR TO APPOINTMENT prednisone 20 mg tablet Active ? Not avai lable TAKE 2 TABLETS BY MOUTH ONCE DAILY WITH FOOD FOR 4 DAYS, TH EN 1 TABLET DAILY. tamsulosin 0.4 mg capsule Active ? Not av ailable Problems Name Status Onset Date Source ? History of Malignant Neoplasm of Bladder Active 012 History Procedures Date Name Performed by ? ? Transurethral Resection of Neoplasm of B ladder Information not available Results Lab Results Date Name Specimen Result Interpretation Description Value Range Status Address ? 04/05/2022 Urinalysis, Urine ? Color-Status Yellow ? ? Dipstick ? ? Urine ? Clarity-Stat Clear ? ? us ? ? Urine ? Glucose-Stat Negative ? ? us ? ? Urine ? Bilirubin-St Negative ? ? atus ? ? Urine ? Ketones-Stat Negative ? ? us ? ? Urine ? Sp 1.020 ? ? [place]-Statu s ? ? Urine ? pH-Status 6.0 ? Urine ? Urobilinogen 0.2 ? ? -Status ? ? Urine ? Nitrates-Sta negative ? ? tus ? ? Urine ? Blood-Status Large ? Urine ? Leuko-Status Negative ? Urine ? Specimen Voided ? ? Type 04/05/2022 Urinalysis, ? No ? ? ? Dipstick observation recorded. 12/03/2021 Urinalysis, ? Color-Status Yellow ? ? Dipstick ? ? ? Clarity-Stat Clear ? ? us ? ? ? Blood-Status Trace ? Leuko-Status Trace ? ? 07/19/2021 Culture, UR ABNORMAL Final Report microbiology ? Final [place] Urine results [facility] Lab: [id number], [place] 07/19/2021 Urinalysis, Urine ? No ? ? ? Dipstick observation recorded. 06/05/2021 Urinalysis, ? No ? ? ? Dipstick observation recorded. 05/11/2021 Culture, UR ABNORMAL Final Report microbiology ? Final [place] Urine results [facility] Lab: [address], [place] 05/11/2021 Urinalysis, ? No ? ? ? Dipstick observation recorded. 05/11/2021 Urinalysis, ? No ? ? ? Dipstick observation recorded. 11/24/2020 PSA, Serum or ? No ? ? ? Plasma observation recorded. 11/06/2020 Urinalysis, ? No ? ? ? Dipstick observation recorded. 05/08/2020 Urinalysis, ? pH-Status 5.0 ? ? Dipstick ? ? ? Leuko-Status Trace ? ? 05/08/2020 Urinalysis, ? No ? ? ? Dipstick observation recorded. ? Urinalysis, ? Color-Status Yellow ? ? Dipstick ? ? ? Clarity-Stat Slightly ? ? us Cloudy ? ? ? pH-Status 5.5 ? Nitrates-Sta positive ? ? tus ? ? ? Blood-Status Trace ? Leuko-Status Moderate ? ? ? Urinalysis, ? Color-Status Yellow ? ? Dipstick ? ? ? Clarity-Stat Clear ? ? us ? ? ? Glucose-Stat Negative ? ? us ? ? ? Bilirubin-St Negative ? ? atus ? ? ? Ketones-Stat Negative ? ? us ? ? ? Sp 1.020 ? ? [place]-Statu s ? ? ? pH-Status 5.5 ? Urobilinogen 0.2 ? ? -Status ? ? ? Nitrates-Sta negative ? ? tus ? ? ? Blood-Status Trace ? Leuko-Status Negative ? Specimen Voided ? ? Type ? Urinalysis, ? pH-Status 5.5 ? ? Dipstick ? ? ? Nitrates-Sta positive ? ? tus ? ? ? Leuko-Status Small ? ? ? Urinalysis, ? Color-Status Yellow ? ? Dipstick ? ? ? Clarity-Stat Clear ? ? us ? ? ? pH-Status 5.5 ? Blood-Status Negative ? Leuko-Status Trace ? ? Past Encounters Encounter Date Diagnosis Provider 04/05/2022 History of Malignant Neoplasm of Sushil Dickson MD: [address], [place] [address], Ph. 01/04/2022 History of Malignant Neoplasm of Sushil Dickson MD: [address], [place] [address], Ph. 12/03/2021 History of Malignant Neoplasm of Sushil Dickson MD: [address], [place] [address], Ph. 07/19/2021 Urinary Tract Infectious Disease Sushil Dickson MD: [address], [place] [address], Ph. [phone] 06/05/2021 History of Malignant Neoplasm of Sushil Dickson MD: [address], [place] [address], Ph. [phone] 05/11/2021 Malignant Tumor of Urinary Bladder; Ivania Dickson MD: [address] Abnormal Urine; Acute Cystitis [facility] [place] [address], Ph. Social History Tobacco Smoking Status Former Smoker Vaccine List Vaccine Type pneumococcal polysaccharide PPV23 10/11/2015 Plan of Care Patient Instructions Pt will be called with results. Reminders Provider Appointments None recorded. ? ? Lab None recorded. ? ? Referral None recorded. ? ? Procedures None recorded. ? ? Surgeries None recorded. ? ? Imaging None recorded. ? ? Vitals 04/05/2022 10:50AM ESTABLISHED 10 Height Weight BMI 6 ft 200 lbs 27.1 kg/m2 01/04/2022 09:10AM ESTABLISHED 20 Height Weight BMI 6 ft 200 lbs 27.1 kg/m2 12/03/2021 10:40AM ESTABLISHED 10 Height Weight BMI 6 ft 200 lbs 27.1 kg/m2 06/05/2021 02:10PM ESTABLISHED 10 Height Weight BMI 6 ft 200 lbs 27.1 kg/m2 05/11/2021 09:50AM ESTABLISHED 10 Height Weight BMI 6 ft 200 lbs 27.1 kg/m2 11/06/2020 11:00AM ESTABLISHED 10 Height Weight BMI 6 ft 200 lbs 27.1 kg/m2 05/08/2020 01:30PM ESTABLISHED 10 Height Weight BMI 6 ft 200 lbs 27.1 kg/m2
== END 2022-07-26 12:01 | disposition home or self-care (01) ==
LOC: AMB 09-02 03:25
PROVIDERS: PCP Family Medicine; Visit Provider Family Medicine
DX: S99.921A Unspecified injury of right foot, initial encounter (principal); W17.89XA Other fall from one level to another, initial encounter; Y92.007 Garden or yard of unspecified non-institutional (private) residence as the place of occurrence of the external cause
CPT/HCPCS: A0425; A0427